=== PATIENT | male | born 1930 | race Caucasian/White ===

== ENCOUNTER 2017-10-20 18:41 | Inpatient (IN) | payer MEDICARE ==
[2017-10-20] MEDS ORDERED: NORMAL SALINE 1,000 ML IV ONE (18:58)
[2017-10-20] MEDS ORDERED: ONDANSETRON HCL/PF 2 MG/ML VIAL IV ONE (18:58)
[2017-10-20] MEDS ORDERED: KETOROLAC TROMETHAMINE 30 MG/ML VIAL IV ONE (18:58)
[2017-10-20] MEDS ORDERED: KETOROLAC TROMETHAMINE 30 MG/ML VIAL ONE (19:02)
[2017-10-20] MEDS ORDERED: ONDANSETRON HCL/PF 2 MG/ML VIAL ONE (19:02)
--- NOTE | 2017-10-20 19:04 | ERNOTE ---
Medical Problem HPI - Narrative Date of Service: 10/20/17 - General Chief Complaint: Nausea/Vomiting Time Seen by Provider: 10/20/17 18:54 Source: patient Exam Limitations: no limitations - Immun/Allergies/Home Medications Immunizations: IMMUNIZATION HX Immunizations Up to Date Yes History of Influenza Vaccine Yes Hx Pneumococcal Vaccination Yes Allergies/Adverse Reactions: Allergies No Known Allergies Allergy (Verified 10/20/17 19:04) Home Medications: HOME MEDICATIONS Insulin Detemir [Levemir] 20 unit SQ BID 10/20/17 [Last Taken Unknown] Levothyroxine Sodium [Levo-T] 50 mcg PO DAILY 10/20/17 [Last Taken Unknown] Lisinopril [Zestril] 10 mg PO HS 10/20/17 [Last Taken Unknown] metFORMIN HCL [Metformin HCl ER] 500 mg PO BID 10/20/17 [Last Taken Unknown] - History of Present History Narrative: Pt. comes in with nausea, vomiting and diarrhea for approximately a day or two. Pt. is poor historian and it has been reported by pt. neighbors that he fell out of his wheel chair. Pt. denies this. Pt. lives in independent living. Timing: getting worse Severity: mild Modifying Factors - (Improves): Present: other - denies Modifying Factors - (Worsens): Present: other - denies Review of Systems - Review of Systems Constitutional: Present: fever, weakness. Absent: chills, fatigue, malaise EYE: Present: no symptoms reported ENT: Present: no symptoms reported Respiratory: Present: no symptoms reported. Absent: shortness of breath, cough , wheezing Cardiology: Present: no symptoms reported. Absent: chest pain, palpitations, edema Gastrointestinal/Abdominal: Present: nausea, vomiting, diarrhea. Absent: abdominal pain Genitourinary: Present: no symptoms reported, decreased urinary output. Absent : frequency Musculoskeletal: Absent: back pain, neck pain, joint pain Skin: Present: no symptoms reported. Absent: rash, change in color, change in hair/nails Neurological: Present: no symptoms reported. Absent: headache, dizziness/light- headedness, numbness, tingling All Other Systems: All systems neg except as marked - Patient's Past Medical History Patient History - Medical: Diabetes Type 2 Insulin Dependent Patient History - Cardiac/Respiratory: COPD, Hypertension Patient History - Cancer: Skin - Social History Living Situations: assisted living Abuse History: No History of abuse Psych History: No pertinent hx Smoking Status: Former smoker Have you smoked in the past 12 months: No Do you dip or chew tobacco: No Alcohol Use: none Drug Use: none - Immunizations Immunizations Up to Date: Yes Hx Pneumococcal Vaccination: Yes History of Influenza Vaccine: Yes Physical Exam - Physical Exam General Appearance: Present: wd/wn, alert, no apparent distress Head Exam: Present: normal inspection, no evidence of injury, no tenderness w palpation Eye Exam: Normal inspection: bilateral, PERRL: bilateral, EOMI: bilateral Ears, Nose, Throat: Present: normal ENT inspection, normal pharynx Neck: Present: normal inspection, nontender, supple, full range of motion, lymphadenopathy (R), lymphadenopathy (L) Respiratory: Present: no respiratory distress, no accessory muscle use, chest nontender, decreased breath sounds. Absent: rales, rhonchi, wheezing Cardiovascular/Chest: Present: no murmur, normal peripheral pulses, tachycardia Gastrointestinal/Abdominal: Present: nontender, soft, abnormal bowel sounds - rare, distended, hepatomegaly Back Exam: Present: normal inspection, normal range of motion, no CVA tenderness , no vertebral tenderness Extremity Exam: Present: normal inspection, non-tender, normal range of motion, no edema Neurological Exam: Present: alert, oriented, normal mood/affect, no motor/ sensory deficits Skin Exam: Present: normal color, warm/dry. Absent: pallor, skin rash ED Progress - Date and Time Seen: Date and Time: 10/20/17 21:18 Discussed with Ki and she agrees to accept pt. for admission.for acute due to pneumonia, sepsis, and hypoxia. - Results and Orders Patient's Lab Results:: I have reviewed the patient's lab results. Results and Orders: Laboratory Results - last 24 hr 10/20/17 10/20/17 10/20/17 18:45 19:15 19:15 WBC 17.1 H RBC 5.18 Hgb 15.0 Hct 42.6 MCV 82.2 MCH 29.0 MCHC 35.2 RDW 12.4 Plt Count 326 MPV 9.7 H Immature Gran % (Auto) 0.70 H Immature Gran # (Auto) 0.12 H Neutrophils % 87.2 H Lymphocytes % 4.9 L Monocytes % 6.1 Eosinophils % 0.5 Basophils % 0.6 Nucleated RBC % 0.0 Neutrophils # 14.9 H Lymphocytes # 0.8 L Monocytes # 1.0 Eosinophils # 0.1 Absolute Basophils 0.1 ESR 25 H Sodium Plasma Sodium Potassium Chloride Carbon Dioxide Anion Gap BUN Creatinine Est GFR (Non-Af Amer) BUN/Creatinine Ratio Random Glucose Mean Blood Glucose Hemoglobin A1c Lactic Acid, Venous Calcium Calcium Adj for Albumin Total Bilirubin AST ALT Alkaline Phosphatase Troponin I C-Reactive Prot, Quant B-Natriuretic Peptide Total Protein Albumin Urine Color Urine Appearance Urine pH Ur Specific [place] Urine Protein Urine Glucose (UA) Urine Ketones Urine Blood Urine Nitrate Urine Bilirubin Prot Sulfosalicylic Acd Urine Urobilinogen Ur Leukocyte Esterase Urine RBC Urine WBC Ur Epithelial Cells Urine Bacteria Urine Culture Comments Serum Ketones Influenza Type A Ag Negative Influenza Type B Ag Negative 10/20/17 10/20/17 10/20/17 19:15 19:15 19:15 WBC RBC Hgb Hct MCV MCH MCHC RDW Plt Count MPV Immature Gran % (Auto) Immature Gran # (Auto) Neutrophils % Lymphocytes % Monocytes % Eosinophils % Basophils % Nucleated RBC % Neutrophils # Lymphocytes # Monocytes # Eosinophils # Absolute Basophils ESR Sodium 138 Plasma Sodium 141 Potassium 4.9 H Chloride 102 Carbon Dioxide 26.7 Anion Gap 14.2 H BUN 20 Creatinine 1.43 H Est GFR (Non-Af Amer) 50 L D BUN/Creatinine Ratio 14.0 Random Glucose 315 H Mean Blood Glucose 234 Hemoglobin A1c 9.6 H Lactic Acid, Venous Calcium 8.6 Calcium Adj for Albumin 8.7 Total Bilirubin 0.5 AST 17 ALT 33 Alkaline Phosphatase 91 Troponin I Less than 0.017 C-Reactive Prot, Quant 1.1 H B-Natriuretic Peptide 79 Total Protein 7.1 Albumin 3.5 Urine Color Urine Appearance Urine pH Ur Specific [place] Urine Protein Urine Glucose (UA) Urine Ketones Urine Blood Urine Nitrate Urine Bilirubin Prot Sulfosalicylic Acd Urine Urobilinogen Ur Leukocyte Esterase Urine RBC Urine WBC Ur Epithelial Cells Urine Bacteria Urine Culture Comments Serum Ketones Negative Influenza Type A Ag Influenza Type B Ag 10/20/17 10/20/17 19:25 19:56 WBC RBC Hgb Hct MCV MCH MCHC RDW Plt Count MPV Immature Gran % (Auto) Immature Gran # (Auto) Neutrophils % Lymphocytes % Monocytes % Eosinophils % Basophils % Nucleated RBC % Neutrophils # Lymphocytes # Monocytes # Eosinophils # Absolute Basophils ESR Sodium Plasma Sodium Potassium Chloride Carbon Dioxide Anion Gap BUN Creatinine Est GFR (Non-Af Amer) BUN/Creatinine Ratio Random Glucose Mean Blood Glucose Hemoglobin A1c Lactic Acid, Venous 2.4 H* Calcium Calcium Adj for Albumin Total Bilirubin AST ALT Alkaline Phosphatase Troponin I C-Reactive Prot, Quant B-Natriuretic Peptide Total Protein Albumin Urine Color Yellow Urine Appearance Slightly cloudy Urine pH 6.0 Ur Specific [place] 1.020 Urine Protein 100 H Urine Glucose (UA) >=1000 H Urine Ketones 15 Urine Blood Negative Urine Nitrate Negative Urine Bilirubin Negative Prot Sulfosalicylic Acd 1+ Urine Urobilinogen Normal Ur Leukocyte Esterase Negative Urine RBC None seen Urine WBC None seen Ur Epithelial Cells None seen Urine Bacteria Trace Urine Culture Comments No culture indicated Serum Ketones Influenza Type A Ag Influenza Type B Ag - Vital Signs Patient's Vital Signs:: I have reviewed the patient's vital signs. Vital Signs: Vital Signs 10/20/17 18:43 Temperature 38.3 C H Pulse Rate 132 H Respiratory 32 H Rate Blood Pressure 123/69 O2 Sat by Pulse 90 Oximetry - EKG EKG: nonspecific ST T wave changes, other - Sinus tach EKG read: Reviewed by me EKG Comments: no acute - X-Ray X-Ray #1 X-Ray: chest Interpretation: Interp. by me X-ray Comments: B LL pneumopnial and RML pneumonia and atelactasis dependent X-Ray #2 X-Ray: abdomen Interpretation: Interp. by me X-ray Comments: Non specific bowel gas pattern no obvous free air or obstruction. - CT/Ultrasound CT/Ultrasound Narrative: CT head negative for any acute abnormality - Progress/Reassessment Chief Complaint: Nausea/Vomiting Progress:: Unchanged Departure Clinical Impression: Hypoxic, Dehydration, Hyperglycemia Pneumonia Qualifiers: Pneumonia type: due to unspecified organism Laterality: bilateral Lung location : lower lobe of lung Qualified Code(s): J18.9 - Pneumonia, unspecified organism Sepsis Qualifiers: Sepsis type: sepsis due to unspecified organism Qualified Code(s): A41.9 - Sepsis, unspecified organism - Departure Disposition: Still a patient Condition: Serious
[2017-10-20 19:30] LABS: Hematocrit 42.6 % (42.0-52.0); Mean Cell Volume 82.2 fl (78-100); Mean Corpuscular Hgb Conc 35.2 g/dl (32-36); Mean Platelet Volume 9.7 fl (6.0-9.5); Neutrophil # 14.9 K/mm3 (1.3-6.0); Neutrophil % 87.2 % (42-75.0); Platelet Count 326 K/mm3 (150-450); Red Blood Count 5.18 M/mm3 (4.7-6.0); Red Cell Distribution Width 12.4 % (11.5-14.0); White Blood Count 17.1 K/mm3 (4.0-10.5)
[2017-10-20 20:02] LABS: ALT 33 U/L (19-67); AST 17 U/L (0-48); Albumin * 3.5 gm/dl (3.4-5.0); Alkaline Phosphatase * 91 U/L (50-170); Anion Gap 14.2 mmol/L (6.8-13.8); BNP * 79 pg/mL (5-650); Bilirubin, Total 0.5 mg/dL (0.0-1.1); Blood Urea Nitrogen 20 mg/dL (6-23); CRP 1.1 mg/dL (0.0-0.9); Ca. Corrected For Albumin 8.7 mg/dL (8.4-10.2); Calcium * 8.6 mg/dL (7.9-10.9); Carbon Dioxide 26.7 mmol/L (24-32.6); Chloride 102 mmol/L (97-106); Glucose * 315 mg/dL (70-110); Potassium 4.9 mmol/L (3.4-4.6); Sodium 138 mmol/L (132-142); Total Protein 7.1 gm/dL (6.2-8.2)
[2017-10-20 20:03] LABS: Troponin I Less than 0.017 ng/ml (0.00-0.10)
[2017-10-20 20:04] LABS: Urine Bilirubin Negative (NEGATIVE); Urine Blood Negative /ul (NEGATIVE); Urine Ketone 15 mg/dL (NEGATIVE); Urine Nitrite Negative (NEGATIVE); Urine Protein 100 mg/dL (NEGATIVE); Urine Urobilinogen Normal (NORMAL)
[2017-10-20 20:17] LABS: Urine Appearance Slightly Cloudy; Urine Bacteria TRACE; Urine Color Yellow; Urine RBC None Seen /hpf (0-5); Urine WBC None Seen /hpf (0-5)
[2017-10-20 20:17] LABS: Hemoglobin A1C 9.6 % (4.00-6.0)
[2017-10-20] MEDS: NORMAL SALINE 1,000 ML IV PRN ×2 (20:25→21:31)
[2017-10-20] MEDS ORDERED: AZITHROMYCIN 500 MG in DEXTROSE 5 % IN WATER 250 ML IV ONE ×2 (20:45)
[2017-10-20] MEDS ORDERED: ACETAMINOPHEN 500 MG TABLET PO ONE (20:51)
--- NOTE | 2017-10-20 22:09 | HP ---
Chief Complaint - Chief Complaint Date of Service: 10/20/17 Time of Service: 22:09 Chief Complaint: nausea, vomiting and diarrhea History of Present Illness: 87 years old white male adm to the hospital with reports of nausea, vomiting , diarrhea, weakness and unable to walk.pt stated his s/s began yesterday, but he began having a cough accompanied with shortness of breath today. He decided its time to seek help, so he called EMS that brought him to the ER. He denies fever , chills, chest pain and haven't had diarrhea or vomiting since this morning. PMH significant for diabetes, hypothyroidism,skin cancer,hypertension and hyperlipidemia. In ER Hypoxic 87% on RA, WBC 17.1, Temp 39 Lactic acid 2.4, Per ERP CXR:B LL pneumopnial and RML pneumonia and atelactasis dependent . CT head negative . In ER he was started on Rocephin and Azithromycin.Plan of care discussed with pt he verbalized understanding and agrees. - Patient's Past Medical History Patient History - Medical: Diabetes Type 2 Insulin Dependent, Hypothyroidism, Other - inflammation of eyelids Patient History - Cardiac/Respiratory: COPD, Deep Vein Thrombosis - 5yrs ago, Hypertension, Hyperlipidemia Patient History - Cancer: Melanoma, Skin Patient History - Surgical Procedures: Cholecystectomy, Other - skin graft, nose resection - Family History Mother Family History - Medical: Father Family History - Medical: Family History - Cancer: Colon - Social History Living Situations: other - senior housing Abuse History: No History of abuse Psych History: No pertinent hx Does anyone smoke in the home?: No Smoking Status: Former smoker - quit 35yrs ago Have you smoked in the past 12 months: No Do you dip or chew tobacco: No Alcohol Use: none Drug Use: none - Immunizations Immunizations Up to Date: Yes Hx Pneumococcal Vaccination: Yes History of Influenza Vaccine: Yes Review Of Systems (GEN) - Review of Systems Generalized/Overall Review: Present: Weakness EENTM: Present: Tearing Respiratory: Present: Cough, Shortness of Breath Cardiac: Present: No Symptoms Reported Abdominal: Present: No Symptoms Reported Genitourinary: Present: Frequency Musculoskeletal: Present: No Symptoms Reported Neurological: Present: Weakness Skin: Present: Dryness Endocrine: Present: No Symptoms Reported Immunizations: IMMUNIZATION HX Immunizations Up to Date Yes History of Influenza Vaccine Yes Hx Pneumococcal Vaccination Yes Allergies/Adverse Reactions: Allergies Allergy/AdvReac Type Severity Reaction Status Date / Time No Known Allergies Allergy Verified 10/20/17 19:04 Home Medications: HOME MEDICATIONS Cholecalciferol (Vitamin D3) [Vitamin D3] 1,000 unit PO DAILY 10/20/17 [Last Taken Unknown] Cyanocobalamin (Vitamin B-12) [Vitamin B12] 2,500 mcg PO DAILY 10/20/17 [Last Taken Unknown] Insulin Detemir [Levemir] 20 unit SQ BID 10/20/17 [Last Taken Unknown] Levothyroxine Sodium [Levo-T] 50 mcg PO DAILY 10/20/17 [Last Taken Unknown] Lisinopril [Zestril] 10 mg PO HS 10/20/17 [Last Taken Unknown] metFORMIN HCL [Metformin HCl ER] 500 mg PO BID 10/20/17 [Last Taken Unknown] Exam - Exam Vital Signs: Vital Signs - Last Taken Temp 38.6 C H 10/20/17 21:17 Pulse 119 H 10/20/17 21:32 Resp 20 10/20/17 21:32 BP 126/58 10/20/17 21:32 Pulse Ox 91 10/20/17 21:32 Constitutional: Present: Alert, Oriented x3, Cooperative, No distress, Obese ENT Exam: Present: hard of hearing Eye Exam: bilateral eye: eyelid inflammation - Ectropion Neck: Present: full range of motion Back Exam: Present: normal inspection Breasts: Present: Exam deferred Respiratory: Present: chest non-tender, no respiratory distress, decreased breath sounds, rhonchi Cardiovascular/Chest: Present: normal peripheral pulses, regular rate, rhythm, no chest tenderness, no edema Peripheral Pulses: dorsalis-pedis (R): 3+, dorsalis-pedis (L): 3+ Abdomen: Present: Normal bowel sounds, soft, nontender, nondistended /Rectal: Present: Exam deferred Extremity: Present: normal range of motion, non-tender, normal inspection, no pedal edema Skin Exam: Present: warm/dry Neurologic: Present: alert, oriented x 3 Appearance: Present: appropriate appearance, appropriate insight, disheveled Eye contact: Present: cooperative, good eye contact Thoughts: Present: normal thought pattern, no apparent hallucination Diagnostic Studies: Laboratory Results WBC 17.1 K/mm3 (4.0-10.5) H 10/20/17 19:15 RBC 5.18 M/mm3 (4.7-6.0) 10/20/17 19:15 Hgb 15.0 gm/dL (13.5-18.0) 10/20/17 19:15 Hct 42.6 % (42.0-52.0) 10/20/17 19:15 MCV 82.2 fl (78-100) 10/20/17 19:15 MCH 29.0 pg (27-31) 10/20/17 19:15 MCHC 35.2 g/dl (32-36) 10/20/17 19:15 RDW 12.4 % (11.5-14.0) 10/20/17 19:15 Plt Count 326 K/mm3 (150-450) 10/20/17 19:15 MPV 9.7 fl (6.0-9.5) H 10/20/17 19:15 Immature Gran % (Auto) 0.70 % (0.001-0.429) H 10/20/17 19:15 Immature Gran # (Auto) 0.12 K/mm3 (0.000-0.0310) H 10/20/17 19:15 Neutrophils % 87.2 % (42-75.0) H 10/20/17 19:15 Lymphocytes % 4.9 % (20-51) L 10/20/17 19:15 Monocytes % 6.1 % (0.0-9) 10/20/17 19:15 Eosinophils % 0.5 % (0.0-3.0) 10/20/17 19:15 Basophils % 0.6 % (0.0-1.0) 10/20/17 19:15 Nucleated RBC % 0.0 k/mm3 (0-1) 10/20/17 19:15 Neutrophils # 14.9 K/mm3 (1.3-6.0) H 10/20/17 19:15 Lymphocytes # 0.8 k/mm3 (1.5-3.5) L 10/20/17 19:15 Monocytes # 1.0 k/mm3 (0.0-1.0) 10/20/17 19:15 Eosinophils # 0.1 k/mm3 (0.0-0.7) 10/20/17 19:15 Absolute Basophils 0.1 k/mm3 (0.0-0.1) 10/20/17 19:15 ESR 25 mm/hr (0-10) H 10/20/17 19:15 Sodium 138 mmol/L (132-142) 10/20/17 19:15 Plasma Sodium 141 mmol/L (130-142) 10/20/17 19:15 Potassium 4.9 mmol/L (3.4-4.6) H 10/20/17 19:15 Chloride 102 mmol/L (97-106) 10/20/17 19:15 Carbon Dioxide 26.7 mmol/L (24-32.6) 10/20/17 19:15 Anion Gap 14.2 mmol/L (6.8-13.8) H 10/20/17 19:15 BUN 20 mg/dL (6-23) 10/20/17 19:15 Creatinine 1.43 mg/dL (0.4-1.4) H 10/20/17 19:15 Est GFR (Non-Af Amer) 50 mL/min (60-130) L D 10/20/17 19:15 BUN/Creatinine Ratio 14.0 (9.0-21.6) 10/20/17 19:15 Random Glucose 315 mg/dL (70-110) H 10/20/17 19:15 Mean Blood Glucose 234 mg/dL 10/20/17 19:15 Hemoglobin A1c 9.6 % (4.00-6.0) H 10/20/17 19:15 Lactic Acid, Venous 2.4 mmol/L (0.4-1.9) H* 10/20/17 19:25 Calcium 8.6 mg/dL (7.9-10.9) 10/20/17 19:15 Calcium Adj for Albumin 8.7 mg/dL (8.4-10.2) 10/20/17 19:15 Total Bilirubin 0.5 mg/dL (0.0-1.1) 10/20/17 19:15 AST 17 U/L (0-48) 10/20/17 19:15 ALT 33 U/L (19-67) 10/20/17 19:15 Alkaline Phosphatase 91 U/L (50-170) 10/20/17 19:15 Troponin I Less than 0.017 ng/ml (0.00-0.10) 10/20/17 19:15 C-Reactive Prot, Quant 1.1 mg/dL (0.0-0.9) H 10/20/17 19:15 B-Natriuretic Peptide 79 pg/mL (5-650) 10/20/17 19:15 Total Protein 7.1 gm/dL (6.2-8.2) 10/20/17 19:15 Albumin 3.5 gm/dl (3.4-5.0) 10/20/17 19:15 Procalcitonin 0.76 ng/mL (0.05-0.50) H 10/20/17 19:45 Urine Color Yellow 10/20/17 19:56 Urine Appearance Slightly cloudy 10/20/17 19:56 Urine pH 6.0 pH (5.0-7.0) 10/20/17 19:56 Ur Specific [place] 1.020 SP.GR. (1.005-1.030) 10/20/17 19:56 Urine Protein 100 mg/dL (NEGATIVE) H 10/20/17 19:56 Urine Glucose (UA) >=1000 mg/dL (NEGATIVE) H 10/20/17 19:56 Urine Ketones 15 mg/dL (NEGATIVE) 10/20/17 19:56 Urine Blood Negative /ul (NEGATIVE) 10/20/17 19:56 Urine Nitrate Negative (NEGATIVE) 10/20/17 19:56 Urine Bilirubin Negative mg/dl (NEGATIVE) 10/20/17 19:56 Prot Sulfosalicylic Acd 1+ mg/dL (0) 10/20/17 19:56 Urine Urobilinogen Normal EU/dl (NORMAL) 10/20/17 19:56 Ur Leukocyte Esterase Negative /ul (NEGATIVE) 10/20/17 19:56 Urine RBC None seen /hpf (0-5) 10/20/17 19:56 Urine WBC None seen /hpf (0-5) 10/20/17 19:56 Ur Epithelial Cells None seen /hpf (0-5) 10/20/17 19:56 Urine Bacteria Trace (NONE) 10/20/17 19:56 Urine Culture Comments No culture indicated 10/20/17 19:56 Serum Ketones Negative (NEGATIVE) 10/20/17 19:15 Influenza Type A Ag Negative (NEGATIVE) 10/20/17 18:45 Influenza Type B Ag Negative (NEGATIVE) 10/20/17 18:45 Per ERP CXR:B LL pneumopnial and RML pneumonia and atelactasis dependent . CT head negative . Assessment/Plan - Narrative Narrative: Pneumonia Continue with Rocephin and Azithromycin Blood culture, pneumoiae and legionella pending On adm WBC 17.1, ESR 25, CRP 1, procal 0.76 Per ERP CXR:B LL pneumonia and RML pneumonia and atelactasis dependent. On adm hypoxic with spo2 87% on RA, switched to 1L oxygen with sats 93-95% He had 3L IVF in ER and Continue with IVF NS 125ml/hr Monitor CMP in am Sepsis vs Sirs On adm Lactic acid 2.4--->2.2 On adm WBC 17.7, No bands, Temp 38.3, HR 132 and resp 32 Pt with Amauri lower lobe pneumonia He had 3L IVF bolus in ER and will Continue with IVF Continue with schedule IV antbx Diabetic On adm BG 315 A1C 9.6 Consistent carb diet Accu-check AC+HS Code status: Full VTE ppx:SCD and heparin Sc GI ppx:Pepcid Time 40 minutes and case discussed with Samanta - Assessment/Plan (1) Pneumonia Problem: Acute Qualifiers: Pneumonia type: due to unspecified organism Laterality: bilateral Lung location: lower lobe of lung Qualified Code(s): J18.9 - Pneumonia, unspecified organism (2) Diabetes Problem: Chronic Qualifiers: Diabetes mellitus type: type 2 (3) Hypertension Problem: Chronic Qualifiers: Hypertension type: essential hypertension Qualified Code(s): I10 - Essential (primary) hypertension (4) Hypothyroidism Problem: Chronic (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
[2017-10-20] MEDS: INSULIN DETEMIR 100 UNITS/ML VIAL SC SCH (23:54)
[2017-10-21] MEDS: NORMAL SALINE 1,000 ML IV PRN ×3 (02:48→18:50)
[2017-10-21 05:44] LABS: Hematocrit 41.3 % (42.0-52.0); Hemoglobin 14.1 gm/dL (13.5-18.0); Mean Cell Volume 83.9 fl (78-100); Mean Corpuscular Hemoglobin 28.7 pg (27-31); Mean Corpuscular Hgb Conc 34.1 g/dl (32-36); Mean Platelet Volume 9.9 fl (6.0-9.5); Platelet Count 281 K/mm3 (150-450); Red Blood Count 4.92 M/mm3 (4.7-6.0); Red Cell Distribution Width 12.6 % (11.5-14.0); White Blood Count 20.7 K/mm3 (4.0-10.5)
[2017-10-21 05:54] LABS: Total Cells Counted 100
[2017-10-21 06:06] LABS: Albumin * 2.9 gm/dl (3.4-5.0); Anion Gap 11.7 mmol/L (6.8-13.8); BUN/Creatinine Ratio 14.4 (9.0-21.6); Bilirubin, Total 0.6 mg/dL (0.0-1.1); Ca. Corrected For Albumin 8.6 mg/dL (8.4-10.2); Potassium 4.7 mmol/L (3.4-4.6); Total Protein 6.3 gm/dL (6.2-8.2)
[2017-10-21 06:21] LABS: Band 9 % (0-2.0); Lymphocyte 2 % (20-51); Monocyte 3 % (0-9); Neutrophil 86 % (42-75); Neutrophil # 17.8 K/mm3 (1.3-6.0); Platelet Estimate Normal (NORMAL)
[2017-10-21 06:22] LABS: RBC Morphology Normal (NORMAL)
[2017-10-21] MEDS: FAMOTIDINE 20 MG TABLET PO SCH ×2 (07:19→08:18)
[2017-10-21] MEDS: LEVOTHYROXINE SODIUM 50 MCG TABLET PO SCH (07:19)
[2017-10-21] MEDS: INSULIN DETEMIR 100 UNITS/ML VIAL SC SCH ×2 (08:16→21:12)
[2017-10-21] MEDS: CYANOCOBALAMIN 1,000 MCG TABLET PO SCH (08:18)
[2017-10-21] MEDS: CHOLECALCIFEROL 1,000 UNIT CAPSULE PO SCH (08:18)
[2017-10-21] MEDS: INSULIN LISPRO 100 UNITS/ML VIAL SC SCH ×2 (17:18)
--- NOTE | 2017-10-21 20:25 | PN ---
Subjective - Date and Time Seen Date: 10/21/17 Time: 20:25 Subjective Narrative: patient seen today sitting up in chair no fever, cough, chills, palpitation or chest pain. pt stated he his feeling well. he report right ankle pain and stated he had fracture ankle 6 years ago and was told it will not heal. Ankle is warm and tender to touch. Objective Objective Narrative: There is a small sore on dorsal aspect of right foot. Right ankle + 4 edema with erythema, it warm and painful to touch. - Review of Systems Generalized/Overall Review: Reports: No Symptoms Reported EENTM: Reports: Tearing Respiratory: Reports: No Symptoms Reported Cardiac: Reports: No Symptoms Reported Abdominal: Reports: No Symptoms Reported Genitourinary Symptoms: Reports: No Symptoms Reported Musculoskeletal Complaints: Reports: No Symptoms Reported Neurological: Reports: No Symptoms Reported Skin: Reports: No Symptoms Reported Endocrine: Reports: No Symptoms Reported - Vitals Vitals: Last Vital Signs Temp 36.7 C 10/21/17 20:07 Pulse 87 10/21/17 20:07 Resp 20 10/21/17 20:07 BP 140/68 10/21/17 20:07 Pulse Ox 99 10/21/17 20:07 - Abnormal Lab Findings Abnormal Lab Findings: Abnormal Lab Results 10/20/17 10/21/17 10/21/17 Range/Units 22:05 05:00 05:00 WBC 20.7 H D (4.0-10.5) K/mm3 Hct 41.3 L (42.0-52.0) % MPV 9.9 H (6.0-9.5) fl Neutrophils % (Manual) 86 H (42-75) % Band Neuts % (Manual) 9 H (0-2.0) % Lymphocytes % (Manual) 2 L (20-51) % Neutrophils # (Manual) 17.8 H (1.3-6.0) K/mm3 Lymphocytes # (Manual) 0.4 L (1.5-3.5) k/mm3 Potassium 4.7 H (3.4-4.6) mmol/L Creatinine 1.60 H (0.4-1.4) mg/dL Est GFR (Non-Af Amer) 44 L (60-130) mL/min Random Glucose 280 H (70-110) mg/dL Lactic Acid, Venous 2.2 H* (0.4-1.9) mmol/L Albumin 2.9 L (3.4-5.0) gm/dl - Exam Constitutional: Present: Alert, Cooperative, No distress, Elderly, Morbidly obese ENT Exam: Present: hard of hearing, other - tearing and inflammation of both eye lids Neck: Present: full range of motion Breasts: Present: Exam deferred Respiratory: Present: chest non-tender, lungs clear, normal breath sounds, no respiratory distress Cardiovascular/Chest: Present: normal peripheral pulses, regular rate, rhythm, no chest tenderness, edema Abdomen: Present: Normal bowel sounds, soft, nontender, nondistended, no rebound tenderness /Rectal: Present: Exam deferred Extremity: Present: normal inspection, no calf tenderness, swelling - right leg , other - riht ankle painful to touch Skin Exam: Present: warm/dry, other - right foot with small sore on the dorsal aspect, erythema around the ankle Neurologic: Present: alert, normal mood/affect Appearance: Present: appropriate appearance Eye contact: Present: good eye contact Thoughts: Present: normal thought pattern Assessment/Plan Plan Narrative: Pneumonia R/O---> Bacteremia Potential sore of infection: Right ankle with erythema, +4 edema, painful to touch and small sore on dorsal aspect of foot. Blood culture preliminary numerous gram (+0) cocci Pneumoiae and legionella pending Continue with Rocephin and Azithromycin On adm WBC 17.1----> 20.7 pt remains afebrile ESR 25, CRP 1, procal 0.76 On adm hypoxic with spo2 87% on RA, switched to 1L oxygen with sats 93-95%. pt had since been Dc off oxygen and on RA 95% Continue with IVF NS 125ml/hr Monitor CMP in am CXR:Extensive chronic lung disease w/o acute focal cardiopulmonary process. X-ray right foot pending ? Sepsis vs Sirs On adm Lactic acid 2.4--->2.2---> On adm WBC 17.7--->20.7, No bands, pt been afebrile since 10/20/17 22:53 CXR:Extensive chronic lung disease w/o acute focal cardiopulmonary process. X-ray ABD: No acute plain film pathology Continue with schedule IV antbx and IVF Potential sore of infection: Right ankle with erythema, +4 edema, painful to touch and small sore on dorsal aspect of foot. Diabetic BG 180 A1C 9.6 Consistent carb diet Accu-check AC+HS Code status: Full VTE ppx:SCD and heparin Sc GI ppx:Pepcid Time 20 minutes and case discussed with Thondapu - Problems/Diagnosis (1) Pneumonia Problem: Ruled-out Qualifiers: Pneumonia type: due to unspecified organism Laterality: bilateral Lung location: lower lobe of lung Qualified Code(s): J18.9 - Pneumonia, unspecified organism (2) Diabetes Problem: Chronic Qualifiers: Diabetes mellitus type: type 2 (3) Hypertension Problem: Chronic Qualifiers: Hypertension type: essential hypertension Qualified Code(s): I10 - Essential (primary) hypertension (4) Hypothyroidism Problem: Chronic (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
[2017-10-21] MEDS: LISINOPRIL 10 MG TABLET PO SCH (21:12)
[2017-10-21] MEDS: cefTRIAXone SODIUM 1,000 MG in DEXTROSE 5 % IN WATER 50 ML IV SCH ×2 (21:19)
[2017-10-21] MEDS: AZITHROMYCIN 500 MG in DEXTROSE 5 % IN WATER 250 ML IV SCH ×2 (21:53)
[2017-10-22] MEDS: NORMAL SALINE 1,000 ML IV PRN ×2 (04:13→16:45)
[2017-10-22 05:08] LABS: Hemoglobin 14.1 gm/dL (13.5-18.0); Mean Cell Volume 83.5 fl (78-100); Mean Corpuscular Hemoglobin 28.7 pg (27-31); Mean Corpuscular Hgb Conc 34.4 g/dl (32-36); Mean Platelet Volume 9.6 fl (6.0-9.5); Neutrophil # 12.8 K/mm3 (1.3-6.0); Neutrophil % 82.4 % (42-75.0); Platelet Count 264 K/mm3 (150-450); Red Blood Count 4.91 M/mm3 (4.7-6.0); Red Cell Distribution Width 12.6 % (11.5-14.0); White Blood Count 15.5 K/mm3 (4.0-10.5)
[2017-10-22 05:34] LABS: Albumin * 2.6 gm/dl (3.4-5.0); Anion Gap 11.6 mmol/L (6.8-13.8); Bilirubin, Total 0.4 mg/dL (0.0-1.1); Ca. Corrected For Albumin 8.9 mg/dL (8.4-10.2); Calcium * 8.1 mg/dL (7.9-10.9); Carbon Dioxide 25.3 mmol/L (24-32.6); Potassium 3.9 mmol/L (3.4-4.6); Total Protein 6.3 gm/dL (6.2-8.2)
[2017-10-22 05:40] LABS: BUN/Creatinine Ratio 12.6 (9.0-21.6)
--- NOTE | 2017-10-22 07:01 | PN ---
Subjective - Date and Time Seen Date: 10/22/17 Time: 06:45 Subjective Narrative: Patient seen today alert and sitting up in chair. pt stated his right ankle still hurt and very tender to touch. He denies fever, chills, calf pain, palpitation, cough or chest pain. Objective - Review of Systems Generalized/Overall Review: Reports: No Symptoms Reported EENTM: Reports: No Symptoms Reported Respiratory: Reports: No Symptoms Reported Cardiac: Reports: No Symptoms Reported Abdominal: Reports: No Symptoms Reported Genitourinary Symptoms: Reports: No Symptoms Reported Musculoskeletal Complaints: Reports: Joint Pain - right ankle, Joint Swelling - right ankle Neurological: Reports: No Symptoms Reported Skin: Reports: Dryness Endocrine: Reports: No Symptoms Reported - Vitals Vitals: Last Vital Signs Temp 37.2 C 10/22/17 04:00 Pulse 84 10/22/17 04:00 Resp 20 10/22/17 04:00 BP 139/89 10/22/17 04:00 Pulse Ox 91 10/22/17 04:00 - Abnormal Lab Findings Abnormal Lab Findings: Abnormal Lab Results 10/22/17 10/22/17 Range/Units 05:04 05:04 WBC 15.5 H D (4.0-10.5) K/mm3 Hct 41.0 L (42.0-52.0) % MPV 9.6 H (6.0-9.5) fl Immature Gran % (Auto) 0.70 H (0.001-0.429) % Immature Gran # (Auto) 0.11 H (0.000-0.0310) K/mm3 Neutrophils % 82.4 H (42-75.0) % Lymphocytes % 10.0 L (20-51) % Neutrophils # 12.8 H (1.3-6.0) K/mm3 Random Glucose 69 L D (70-110) mg/dL Albumin 2.6 L (3.4-5.0) gm/dl - Exam Constitutional: Present: Alert, Cooperative, No distress, Elderly, Morbidly obese ENT Exam: Present: hard of hearing Neck: Present: full range of motion Respiratory: Present: chest non-tender, no respiratory distress, decreased breath sounds Cardiovascular/Chest: Present: normal peripheral pulses, regular rate, rhythm, no chest tenderness, no gallop, edema Abdomen: Present: Normal bowel sounds, soft, nontender, nondistended /Rectal: Present: Exam deferred Extremity: Present: no calf tenderness, normal capillary refill, lower extremity edema - right foot, other - right ankle and stacker tender to touch. Absent: normal range of motion Skin Exam: Present: other - erythema around right ankle and dorsal aspect of right foot with small sore Neurologic: Present: normal mood/affect, oriented x 3 Appearance: Present: appropriate appearance Eye contact: Present: cooperative, good eye contact Thoughts: Present: normal thought pattern Assessment/Plan Plan Narrative: ?Bacteremia- possible contaminant Potential sore of infection: Right ankle with erythema, +4 edema, painful to touch and small sore on dorsal aspect of foot. Blood culture final result: strep pyogenes group A, possible contaminant Continue with Rocephin and Azithromycin. On adm WBC 17.1----> 20.7 ---->15.0 trending down and pt remains afebrile Pneumoiae and legionella pending ESR 25, CRP 1, procal 0.76 Continue with IVF NS 125ml/hr CXR:Extensive chronic lung disease w/o acute focal cardiopulmonary process. X-ray right foot pending Sepsis vs Sirs On adm Lactic acid 2.4--->2.2---> On adm WBC 17.7--->20.7---15.0 No bands, pt been afebrile since 10/20/17 22:53 CXR:Extensive chronic lung disease w/o acute focal cardiopulmonary process. X-ray ABD: No acute plain film pathology Continue with schedule IV antbx and IVF Potential sore of infection: Right ankle with erythema, +4 edema, painful to touch and small sore on dorsal aspect of foot. Right ankle edema-concern for possible gout arthritis CRP and ESR pending Uric acid pending X-ray ankle pending Hypoxic -resolved On adm hypoxic with spo2 87% on RA, Pt switched to 1L oxygen with sats 93-95%. pt had since been D/C off oxygen and on RA 95% Diabetic - stable BG 111 A1C 9.6 Consistent carb diet Accu-check AC+HS Code status: Full VTE ppx:SCD and heparin Sc GI ppx:Pepcid Time 20 minutes and case discussed with Thondapu - Problems/Diagnosis (1) Pneumonia Problem: Ruled-out Qualifiers: Pneumonia type: due to unspecified organism Laterality: bilateral Lung location: lower lobe of lung Qualified Code(s): J18.9 - Pneumonia, unspecified organism (2) Diabetes Problem: Chronic Qualifiers: Diabetes mellitus type: type 2 (3) Hypertension Problem: Chronic Qualifiers: Hypertension type: essential hypertension Qualified Code(s): I10 - Essential (primary) hypertension (4) Hypothyroidism Problem: Chronic (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
[2017-10-22] MEDS: INSULIN LISPRO 100 UNITS/ML VIAL SC SCH ×6 (07:06→17:25)
[2017-10-22] MEDS: LEVOTHYROXINE SODIUM 50 MCG TABLET PO SCH (07:07)
[2017-10-22] MEDS: FAMOTIDINE 20 MG TABLET PO SCH (09:22)
[2017-10-22] MEDS: CYANOCOBALAMIN 1,000 MCG TABLET PO SCH (09:22)
[2017-10-22] MEDS: INSULIN DETEMIR 100 UNITS/ML VIAL SC SCH ×2 (09:22→21:08)
[2017-10-22] MEDS: CHOLECALCIFEROL 1,000 UNIT CAPSULE PO SCH (09:22)
[2017-10-22 21:06] LABS: Uric Acid 3.9 mg/dL (2.6-7.2)
[2017-10-22] MEDS: LISINOPRIL 10 MG TABLET PO SCH (21:10)
[2017-10-22] MEDS: cefTRIAXone SODIUM 1,000 MG in DEXTROSE 5 % IN WATER 50 ML IV SCH ×2 (21:11)
[2017-10-22 21:46] LABS: CRP 18.5 mg/dL (0.0-0.9)
[2017-10-22] MEDS: AZITHROMYCIN 500 MG in DEXTROSE 5 % IN WATER 250 ML IV SCH ×2 (21:57)
[2017-10-23] MEDS: NORMAL SALINE 1,000 ML IV PRN (02:24)
[2017-10-23] MEDS: INSULIN LISPRO 100 UNITS/ML VIAL SC SCH ×6 (07:10→17:09)
[2017-10-23] MEDS: LEVOTHYROXINE SODIUM 50 MCG TABLET PO SCH (07:12)
--- NOTE | 2017-10-23 07:22 | PN ---
Subjective - Date and Time Seen Date: 10/23/17 Time: 07:00 Subjective Narrative: Patient seen today with reports of right ankle pain still very much painful. He anticipate been discharge to possible rehab with a walker. Objective - Review of Systems Generalized/Overall Review: Reports: No Symptoms Reported EENTM: Reports: No Symptoms Reported Respiratory: Reports: No Symptoms Reported Cardiac: Reports: No Symptoms Reported Abdominal: Reports: No Symptoms Reported Genitourinary Symptoms: Reports: No Symptoms Reported Musculoskeletal Complaints: Reports: Joint Pain Neurological: Reports: No Symptoms Reported Skin: Reports: No Symptoms Reported Endocrine: Reports: No Symptoms Reported - Vitals Vitals: Last Vital Signs Temp 36.9 C 10/23/17 04:00 Pulse 96 10/23/17 04:00 Resp 20 10/23/17 04:00 BP 162/86 10/23/17 04:00 Pulse Ox 91 10/23/17 04:00 - Abnormal Lab Findings Abnormal Lab Findings: Abnormal Lab Results 10/22/17 10/22/17 Range/Units 20:27 20:27 ESR 69 H (0-10) mm/hr C-Reactive Prot, Quant 18.5 H (0.0-0.9) mg/dL - Exam Constitutional: Present: Alert, Oriented x3, Cooperative, No distress, Elderly, Obese ENT Exam: Present: hard of hearing, other - inflammation eye lids Neck: Present: full range of motion Respiratory: Present: chest non-tender, lungs clear, normal breath sounds, no respiratory distress Cardiovascular/Chest: Present: normal peripheral pulses, regular rate, rhythm, no chest tenderness, no edema Abdomen: Present: Normal bowel sounds, soft, nontender, nondistended, no rebound tenderness Extremity: Present: normal inspection, no calf tenderness, normal capillary refill, lower extremity edema - right ankle swelling,warm and painful to touch Skin Exam: Present: warm/dry Neurologic: Present: normal mood/affect, oriented x 3 Appearance: Present: appropriate appearance, appropriate insight Eye contact: Present: cooperative, good eye contact Thoughts: Present: normal thought pattern, no apparent hallucination Assessment/Plan Plan Narrative: Right ankle edema-concern for possible gout arthritis Uric acid negative X-ray ankle -Arthritic changes, soft tissue swelling. No fracture or dislocation ESR 25--->69, CRP 1--->18.5, procal 0.76 Continue with IVF NS 125ml/hr X-ray right foot- No acute process Diabetic - stable BG 111 A1C 9.6 Consistent carb diet Accu-check AC+HS ?Bacteremia- possible contaminant Potential sore of infection: Right ankle with erythema, +4 edema, painful to touch and small sore on dorsal aspect of foot. Blood culture final result: strep pyogenes group A, possible contaminant Continue with Rocephin and Azithromycin. On adm WBC 17.1----> 20.7 ---->15.0 trending down and pt remains afebrile Pneumoiae and legionella negative Sepsis vs Sirs- resolved - resolving On adm Lactic acid 2.4--->2.2---> On adm WBC 17.7--->20.7---15.0 No bands, pt been afebrile since 10/20/17 22:53 CXR:Extensive chronic lung disease w/o acute focal cardiopulmonary process. X-ray ABD: No acute plain film pathology Continue with schedule IV antbx and IVF Potential sore of infection: Right ankle with erythema, +4 edema, painful to touch and small sore on dorsal aspect of foot. Hypoxic -resolved On adm hypoxic with spo2 87% on RA, Pt switched to 1L oxygen with sats 93-95%. pt had since been D/C off oxygen and on RA 95% Code status: Full VTE ppx:SCD and heparin Sc GI ppx:Pepcid Time 20 minutes and case discussed with Thondapu - Problems/Diagnosis (1) Pneumonia Problem: Ruled-out Qualifiers: Pneumonia type: due to unspecified organism Laterality: bilateral Lung location: lower lobe of lung Qualified Code(s): J18.9 - Pneumonia, unspecified organism (2) Diabetes Problem: Chronic Qualifiers: Diabetes mellitus type: type 2 (3) Hypertension Problem: Chronic Qualifiers: Hypertension type: essential hypertension Qualified Code(s): I10 - Essential (primary) hypertension (4) Hypothyroidism Problem: Chronic (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
[2017-10-23] MEDS: INSULIN DETEMIR 100 UNITS/ML VIAL SC SCH ×2 (09:18→21:55)
[2017-10-23] MEDS: CHOLECALCIFEROL 1,000 UNIT CAPSULE PO SCH (09:19)
[2017-10-23] MEDS: CYANOCOBALAMIN 1,000 MCG TABLET PO SCH (09:19)
[2017-10-23] MEDS: FAMOTIDINE 20 MG TABLET PO SCH (09:19)
[2017-10-23 10:34] LABS: Hematocrit 40.3 % (42.0-52.0); Hemoglobin 14.4 gm/dL (13.5-18.0); Mean Cell Volume 81.4 fl (78-100); Mean Corpuscular Hemoglobin 29.1 pg (27-31); Mean Corpuscular Hgb Conc 35.7 g/dl (32-36); Mean Platelet Volume 9.4 fl (6.0-9.5); Neutrophil # 9.1 K/mm3 (1.3-6.0); Neutrophil % 78.2 % (42-75.0); Platelet Count 266 K/mm3 (150-450); Red Blood Count 4.95 M/mm3 (4.7-6.0); Red Cell Distribution Width 12.6 % (11.5-14.0); White Blood Count 11.6 K/mm3 (4.0-10.5)
[2017-10-23 10:51] LABS: Albumin * 2.7 gm/dl (3.4-5.0); Anion Gap 11.6 mmol/L (6.8-13.8); BUN/Creatinine Ratio 12.5 (9.0-21.6); Bilirubin, Total 0.6 mg/dL (0.0-1.1); Calcium * 8.3 mg/dL (7.9-10.9); Carbon Dioxide 27.2 mmol/L (24-32.6); Potassium 3.8 mmol/L (3.4-4.6); Total Protein 6.5 gm/dL (6.2-8.2)
[2017-10-23] MEDS ORDERED: AZITHROMYCIN 250 MG TABLET PO SCH (21:00)
[2017-10-23] MEDS ORDERED: DEXTROSE 50%-WATER 50 ML SYRG IV ONE (21:51)
[2017-10-23] MEDS: LISINOPRIL 10 MG TABLET PO SCH (21:59)
[2017-10-23] MEDS: cefTRIAXone SODIUM 1,000 MG in DEXTROSE 5 % IN WATER 50 ML IV SCH ×2 (22:00)
[2017-10-24] MEDS: INSULIN LISPRO 100 UNITS/ML VIAL SC SCH ×4 (07:31→11:56)
[2017-10-24] MEDS: LEVOTHYROXINE SODIUM 50 MCG TABLET PO SCH (07:32)
[2017-10-24] MEDS: FAMOTIDINE 20 MG TABLET PO SCH (09:02)
[2017-10-24] MEDS: INSULIN DETEMIR 100 UNITS/ML VIAL SC SCH (09:02)
[2017-10-24] MEDS: CYANOCOBALAMIN 1,000 MCG TABLET PO SCH (09:02)
[2017-10-24] MEDS: CHOLECALCIFEROL 1,000 UNIT CAPSULE PO SCH (09:02)
--- NOTE | 2017-10-24 14:32 | DS ---
(1) Probable Pneumonia Problem: Acute (2) Dehydration Problem: Acute (3) T2DM (type 2 diabetes mellitus) Problem: Chronic (4) Hypertension Problem: Chronic Qualifiers: Hypertension type: essential hypertension Qualified Code(s): I10 - Essential (primary) hypertension Description of Stay: DATE OF ADMISSION: 10/20/17. DATE OF DISCHARGE: 10/24/17. DIAGNOSTICS: CT HEAD W/O 10/20/17. ADMITTING HPI: 87 years old white male adm to the hospital with reports of nausea, vomiting , diarrhea, weakness and unable to walk.pt stated his s/s began yesterday, but he began having a cough accompanied with shortness of breath today. He decided its time to seek help, so he called EMS that brought him to the ER. He denies fever , chills, chest pain and haven't had diarrhea or vomiting since this morning. PMH significant for diabetes, hypothyroidism, skin cancer,hypertension and hyperlipidemia. In ER Hypoxic 87% on RA, WBC 17.1, Temp 39 Lactic acid 2.4, Per ERP CXR:B LL pneumonia and RML pneumonia and atelactasis dependent . CT head negative . In ER he was started on Rocephin and Azithromycin.Plan of care discussed with pt he verbalized understanding and agrees. By Ki Love [employer][hospitalist]. DISCHARGE SUMMARY: Hank Ballesteros is a 87-year-old WM with a H/O HTN, HLD, T2 DM, hypothyroidism, who presented with cough, SOB, upper back pain, hypoxia with sats of 87% on RA for 2 days [employer]. Possible infiltrates on CXR by ERP later read as normal by radiologist. WBC - 17.1K, lactic acid 2.4. Started on CTX 1 g IV daily and azithromycin 500 mg IV daily for presumed pneumonia. On 10/21/17: WBC 20.7 K with 9% bands. Patient placed on oxygen which was gradually weaned off. Labs were trended which improved. BUN/CR 20/ 1.43 with GFR 50 ml/min[10/20/17] which improved to 14/1.12 with GFR 66 ml/min with IV fluids given for hydration. WBC came down to 11.6 on 10/24/17. Since chest x-ray was clear other sources of infection were checked for. Right lower extremity had chronic edema with a small well-healed ulcer. Small open area present on one of the cheeks of the buttocks which was extremely superficial. One out of 2 blood cultures was positive for strep pyogenes A[ most likely a contaminant]. Repeat blood cultures on 10/24/17 had no growth. Patient's condition at the time of discharge was stable. RADIOLOGY REPORTS: CT HEAD W/O: 10/20/17: There is atrophy. There is chronic microvascular ischemic change of the white matter. Paranasal sinuses are clear. Mastoid cells are well pneumatized. IMPRESSION: NO ACUTE INTRACRANIAL PROCESS DETECTED. CXR: SINGLE VIEW: 10/20/17: Extensive fibrotic scarring and emphysema seen within the lungs bilaterally. This is in the bases greater than in the upper lobes. IMPRESSION: EXTENSIVE CHRONIC LUNG DISEASE WITHOUT ACUTE OR FOCAL CARDIOPULMONARY PROCESS. ABDOMEN-FLAT/UPRIGHT: 10/20/17: No free air. Reason IVC filter. There are clips in the RUQ. There is scattered fecal retention. There are vascular calcifications. IMPRESSION: NO ACUTE PLAIN FILM PATHOLOGY. A total of 35 minutes was spent with the patient 1. Discussing test results, plan of care and patient education. 2. Reconciliation of medications, discharge plans, preparing and dictating discharge summary. Procedures Performed: none Results and Findings: Laboratory Tests 10/20/17 10/21/17 10/23/17 19:15 05:00 10:27 WBC 17.1 H 20.7 H D 11.6 H D Hgb 15.0 14.1 14.4 Hct 42.6 41.3 L 40.3 L Plt Count 326 281 266 Band Neuts % (Manual) 9 H 10/20/17 10/21/17 10/23/17 19:15 05:00 10:27 Plasma Sodium 141 142 137 Potassium 4.9 H 4.7 H 3.8 Chloride 102 105 101 Carbon Dioxide 26.7 27.0 27.2 BUN 20 23 14 Creatinine 1.43 H 1.60 H 1.12 Est GFR (Non-Af Amer) 50 L D 44 L 66 10/20/17 19:15 ESR 25 Troponin I <0.017 C-Reactive Prot, Quant 1.1 H Procalcitonin 0.76 H 10/20/17 10/20/17 19:25 22:05 Lactic Acid, Venous 2.4 H* 2.2 H* 10/20/17 10/20/17 18:45 19:56 Influenza Type A Ag Negative Influenza Type B Ag Negative Urine Legionella Ag Not detected S. pneumoniae Ag Intrp Not detected Discharge Location: Home Disposition: Home self-care Condition: Undetermined Discharge Activity: Activity as tolerated Discharge Diet: Consistent carbs, Low salt, Low fat/chol, High Fiber Problem Oriented Discharge Instructions to Patient/Family: Dehydration, Adult, [id number], Community-Acquired Pneumonia, Adult, [id number] Additional Patient Instructions (free text): -Please make TCM appointment unless [facility] discharge. Thank you! Leslee @ [phone]. Sleep on side and keep your butt open to air for several hours so the wound can heal. [facility] courtesy visit. Please call report and fax orders upon discharge. Apply TEA TREE OIL to fingernails twice a day for a year - 50% chance of healing. Take metformin ER twice a day with food. Can increase vitamin D3 from 1000 units 2 2000 units daily with food. Patient to take bedtime snack : 1. Peanut butter/ wheat bread 2. Burmese yogurt - 6 ounces. 3. 3 ounces nuts-unsalted[almonds, walnuts]. Make appointment with Dr. Medeiros in 7-10 days.Follow up on 11-01-17 @ 2:15pm. F/U with Dr Ramos outpatient for toenail care on 01-04-18 @ 1:30pm. Complete Home Medications List: Complete Home Medication List: Cholecalciferol (Vitamin D3) [Vitamin D3] 1,000 unit PO DAILY 10/20/17 Cyanocobalamin (Vitamin B-12) [Vitamin B12] 2,500 mcg PO DAILY 10/20/17 Insulin Detemir [Levemir] 20 unit SQ BID 10/20/17 Levothyroxine Sodium [Levo-T] 50 mcg PO DAILY 10/20/17 Lisinopril [Zestril] 10 mg PO HS 10/20/17 metFORMIN HCL [Metformin HCl ER] 500 mg PO BID 10/20/17
[2017-10-24 15:37] VITALS: BP 166/88
== END 2017-10-24 15:45 | disposition home or self-care (01) | DRG 195 ==
LOC: ER 18:41 → MS 21:22
PROVIDERS: ADMIT Nurse Practitioner; ATTEND Internal Medicine
DX: J18.9 Pneumonia, unspecified organism (principal); R09.02 Hypoxemia; H02.103 Unspecified ectropion of right eye, unspecified eyelid; H02.106 Unspecified ectropion of left eye, unspecified eyelid; E86.0 Dehydration; M19.071 Primary osteoarthritis, right ankle and foot; E11.9 Type 2 diabetes mellitus without complications; I10 Essential (primary) hypertension; E03.9 Hypothyroidism, unspecified; Z79.4 Long term (current) use of insulin
CPT/HCPCS: 36415; 70450; 71045; 71046; 73610; 73630; 74019; 80053; 81001; 82009; 83036; 83605; 83880; 84145; 84484; 84550; 85007; 85025; 85652; 86140; 87040; 87077; 87400; 87449; 93005; 96361; 96365; 96367; 96375; 97110; 97112; 97116; 97161; 99285; J2405

== ENCOUNTER 2019-07-08 15:40 | Inpatient (IN) ==
[2019-07-08] MEDS ORDERED: ACETAMINOPHEN 1,000 MG/100 ML BTL IV ONE (15:53)
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
[2019-07-08 16:13] LABS: Hematocrit 39.3 % (42.0-52.0); Hemoglobin 13.2 gm/dL (13.5-18.0); Mean Cell Volume 89.1 fl (78-100); Mean Corpuscular Hemoglobin 29.9 pg (27-31); Mean Corpuscular Hgb Conc 33.6 g/dl (32-36); Mean Platelet Volume 8.9 fl (8-11.3); Neutrophil # 8.7 K/mm3 (1.3-6.0); Neutrophil % 69.6 % (42-75.0); Platelet Count 396 K/mm3 (150-450); Red Blood Count 4.41 M/mm3 (4.7-6.0); Red Cell Distribution Width 12.3 % (11.5-14.0); White Blood Count 12.5 K/mm3 (4.0-10.5)
[2019-07-08 16:24] LABS: Albumin * 3.3 gm/dl (3.4-5.0); Anion Gap 10.1 mmol/L (6.8-13.8); BUN/Creatinine Ratio 10.5 (9.0-21.6); Bilirubin, Total 0.5 mg/dL (0.0-1.1); Calcium * 8.8 mg/dL (7.9-10.9); Carbon Dioxide 26.2 mmol/L (24-32.6); Potassium 4.3 mmol/L (3.4-4.6)
[2019-07-08] MEDS ORDERED: MORPHINE SULFATE 2 MG/ML DISP.SYRIN IV ONE (17:22)
[2019-07-08] MEDS: MORPHINE SULFATE 4 MG/ML SYRG IV PRN ×2 (19:17→23:42)
[2019-07-08] MEDS ORDERED: FUROSEMIDE 10 MG/ML VIAL IV ONE ×2 (19:57→22:00)
--- NOTE | 2019-07-08 19:57 | HP ---
Chief Complaint - Chief Complaint Date of Service: 07/08/19 Time of Service: 19:41 Chief Complaint: right hip fracture History of Present Illness: Patient with past medical history of diabetes, high blood pressure, hypothyroidism, skin cancers suffered a hip fracture after ground-level fall today. He was working on his car did not have his walker with him and lost his balance. He laid outside for approximately 20 minutes before help arrived, and the temperature was around 40 degrees today. Hip x-ray in the ED showed a right hip fracture, official read pending. He reports having bilateral lower extremity edema for a couple of weeks. He reports choosing to stop his medicines, and has not taken anything in about 3 weeks. He states his blood glucose has been mostly in the 140s. He agrees with restarting insulin and lisinopril as needed throughout his hospital stay. He denies signs of infection. Denies fevers, sore throat, cough, vomiting, diarrhea, dysuria, skin ulcers. He does have some sinus congestion, but he states this is baseline. 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 Left [place], right nasal bridge. H/O extropion after surgery on the right lower lip and full thickness skin graft with lateral tarsal strip 09/22. Left nose and cheek 10/24 and 06/27. Surgical History: Surgical History (Last Reviewed 07/08/19 @ 17:51 by Renée Reza RN) Status post surgical removal of malignant neoplasm of skin (Acute) ulcerated skin cancer lesion removed by Dr. Bower several weeks ago, 2019 History of nasal surgery (Resolved) Onset Date: ~1998 cancer Hx laparoscopic cholecystectomy (Resolved) Onset Date: ~02/02/09 tinguely-acute/chronic cholecystitis History of eye surgery (Resolved) Onset Date: Unknown right eye graft x 2 H/O colonoscopy (Resolved) Onset Date: ~2001 H/O eye surgery (Resolved) Onset Date: ~11/2005 bilateral cataract surgery Family History: Family History (Last Reviewed 07/08/19 @ 17:51 by Renée Reza RN) Father , age 47 colon cancer Cancer colon Mother , age 80 Pneumonia Brother , age 68 Cancer stomach Brother , age 72 Cancer Lung Sister , age 58 Cancer breast Social History: (Last Reviewed 07/08/19 @ 17:51 by Renée Reza RN) Social History: adopted: No foster care: No Marital status: / lives independently: Yes household members: none caregiver/support person: No current occupational status: retired Highest education level completed: GED or equivalent Service: No Tobacco: Smoking Status: Former smoker how long ago did patient quit smoking: pt quit smoking in 1985 Alcohol: alcohol intake: never Substance Use: substance use type: does not use Dietary Habits: caffeine: Yes caffeine comment: 4/day Type: coffee, tea Review Of Systems (GEN) - Review of Systems Generalized/Overall Review: Absent: Fever Respiratory: Absent: Cough, Shortness of Breath Cardiac: Present: Edema. Absent: Chest Pain Abdominal: Absent: Nausea, Vomiting, Constipation, Diarrhea Genitourinary: Absent: Dysuria Musculoskeletal: Present: Joint Pain - Right hip, Back Pain Skin: Present: Other - Skin tear of right elbow Immunizations: IMMUNIZATION HX Immunizations Up to Date Yes History of Influenza Vaccine Yes Hx Pneumococcal Vaccination Yes Allergies/Adverse Reactions: Allergies Allergy/AdvReac Type Severity Reaction Status Date / Time atorvastatin [From Lipitor] AdvReac leg Verified 07/08/19 17:51 cramps, myalgia naproxen [From Naprosyn] AdvReac Ulcer Verified 07/08/19 17:51 pravastatin [From Pravachol] AdvReac myalgias, Verified 07/08/19 17:51 leg cramps rosuvastatin [From Crestor] AdvReac leg cramps Verified 07/08/19 17:51 simvastatin [From Zocor] AdvReac myalgias, Verified 07/08/19 17:51 leg cramps Home Medications: HOME MEDICATIONS levothyroxine 50 mcg tablet 50 mcg PO DAILY #90 tab 01/08/19 [Last Taken Unknown] blood sugar diagnostic See Dose Instructions .ROUTE .MEDSUPPLY #100 ea 01/15/19 [Last Taken Unknown] Durable Medical Equipment See Rx Instructions .ROUTE .MEDSUPPLY #1 ea 03/22/19 [Last Taken Unknown] oxyCODONE HCL/ACETAMINOPHEN [Percocet 5 MG/325 MG] 1 - 2 tab PO Q6H PRN #8 tab 03/28/19 [Last Taken Unknown] insulin detemir U-100 100 unit/mL subcutaneous solution 17 unit SUBCUT DAILY ml 05/10/19 [Last Taken Unknown] furosemide 20 mg tablet 20 mg PO DAILY 05/31/19 [Last Taken Unknown] Lisinopril [Zestril] 5 mg PO QAM 07/08/19 [Last Taken Unknown] Lisinopril [Zestril] 10 mg PO HS 07/08/19 [Last Taken Unknown] Exam - Exam Vital Signs: Vital Signs - Last Taken Temp 37.0 C 07/08/19 15:44 Pulse 98 07/08/19 17:32 Resp 19 07/08/19 17:32 BP 167/74 H 07/08/19 17:32 Pulse Ox 95 07/08/19 17:32 Constitutional: Present: Alert, Oriented x3, Cooperative, Elderly ENT Exam: Present: other - Postop changes of his nose, well-healed right forehead and left lower face surgical scars Respiratory: Present: lungs clear, normal breath sounds, no respiratory distress Cardiovascular/Chest: Present: regular rate, rhythm Abdomen: Present: Normal bowel sounds, soft, nontender Extremity: Present: lower extremity edema - 2+ bilaterally, other - Right lower leg laterally rotated and foreshortened Skin Exam: Present: other - Flaky skin of right medial lower leg. tagederm in place over right elbow and skin tear Neurologic: Absent: sensory deficit Appearance: Present: appropriate insight Eye contact: Present: cooperative, good eye contact Thoughts: Present: normal mood /affect Diagnostic Studies: Abnormal Lab Results 07/08/19 07/08/19 Range/Units 16:05 16:05 WBC 12.5 H (4.0-10.5) K/mm3 RBC 4.41 L (4.7-6.0) M/mm3 Hgb 13.2 L (13.5-18.0) gm/dL Hct 39.3 L (42.0-52.0) % Immature Gran % (Auto) 0.60 H (0.001-0.429) % Immature Gran # (Auto) 0.08 H (0.000-0.0310) K/mm3 Lymphocytes % 17.2 L (20-51) % Eosinophils % 3.4 H (0.0-3.0) % Neutrophils # 8.7 H (1.3-6.0) K/mm3 Random Glucose 143 H (70-110) mg/dL Albumin 3.3 L (3.4-5.0) gm/dl Laboratory Results WBC 12.5 K/mm3 (4.0-10.5) H 07/08/19 16:05 RBC 4.41 M/mm3 (4.7-6.0) L 07/08/19 16:05 Hgb 13.2 gm/dL (13.5-18.0) L 07/08/19 16:05 Hct 39.3 % (42.0-52.0) L 07/08/19 16:05 MCV 89.1 fl (78-100) 07/08/19 16:05 MCH 29.9 pg (27-31) 07/08/19 16:05 MCHC 33.6 g/dl (32-36) 07/08/19 16:05 RDW 12.3 % (11.5-14.0) 07/08/19 16:05 Plt Count 396 K/mm3 (150-450) 07/08/19 16:05 MPV 8.9 fl (8-11.3) 07/08/19 16:05 Immature Gran % (Auto) 0.60 % (0.001-0.429) H 07/08/19 16:05 Immature Gran # (Auto) 0.08 K/mm3 (0.000-0.0310) H 07/08/19 16:05 Neutrophils % 69.6 % (42-75.0) 07/08/19 16:05 Lymphocytes % 17.2 % (20-51) L 07/08/19 16:05 Monocytes % 8.2 % (0.0-9) 07/08/19 16:05 Eosinophils % 3.4 % (0.0-3.0) H 07/08/19 16:05 Basophils % 1.0 % (0.0-1.0) 07/08/19 16:05 Nucleated RBC % 0.0 k/mm3 (0-1) 07/08/19 16:05 Neutrophils # 8.7 K/mm3 (1.3-6.0) H 07/08/19 16:05 Lymphocytes # 2.15 k/mm3 (1.5-3.5) 07/08/19 16:05 Monocytes # 1.0 k/mm3 (0.0-1.0) 07/08/19 16:05 Eosinophils # 0.4 k/mm3 (0.0-0.7) 07/08/19 16:05 Absolute Basophils 0.1 k/mm3 (0.0-0.1) 07/08/19 16:05 Sodium 135 mmol/L (132-142) 07/08/19 16:05 Plasma Sodium 136 mmol/L (130-142) 07/08/19 16:05 Potassium 4.3 mmol/L (3.4-4.6) 07/08/19 16:05 Chloride 103 mmol/L (97-106) 07/08/19 16:05 Carbon Dioxide 26.2 mmol/L (24-32.6) 07/08/19 16:05 Anion Gap 10.1 mmol/L (6.8-13.8) 07/08/19 16:05 BUN 12 mg/dL (6-23) D 07/08/19 16:05 Creatinine 1.14 mg/dL (0.4-1.4) 07/08/19 16:05 Est GFR (Non-Af Amer) 64 mL/min (60-130) D 07/08/19 16:05 BUN/Creatinine Ratio 10.5 (9.0-21.6) 07/08/19 16:05 Random Glucose 143 mg/dL (70-110) H 07/08/19 16:05 Calcium 8.8 mg/dL (7.9-10.9) 07/08/19 16:05 Calcium Adj for Albumin 9.0 mg/dL (8.4-10.2) 07/08/19 16:05 Total Bilirubin 0.5 mg/dL (0.0-1.1) 07/08/19 16:05 AST 31 U/L (0-48) 07/08/19 16:05 ALT 24 U/L (19-67) 07/08/19 16:05 Alkaline Phosphatase 139 U/L (50-170) 07/08/19 16:05 Total Protein 7.0 gm/dL (6.2-8.2) 07/08/19 16:05 Albumin 3.3 gm/dl (3.4-5.0) L 07/08/19 16:05 Assessment/Plan - Assessment/Plan (1) Closed right hip fracture Assessment: Using the NSQIP surgical risk calculator, he is at average risk for any complication. Risk factors include age, male, diabetes using insulin, HTN, fall history. He is at increased risk for post-op delirium and functional decline. Likely will require a rehab stay at a facility prior to returning home. ERP reports orthopedics has been consulted. We will place a Silvestre catheter for surgery tomorrow afternoon. Pain control with 2 mg morphine every 30 minutes as needed and 5 mg Pratts every 3 hours as needed. He has Percocet on his home medication list, and can switch to this if needed. Of note, DVT is listed in his problem list in his chart. He is not currently anticoagulated. Anticoagulate per surgeon's post op recommendations. Problem: Acute Qualifiers: Encounter type: initial encounter Qualified Code(s): S72.001A - Fracture of unspecified part of neck of right femur, initial encounter for closed fracture (2) Hypertension Assessment: Blood pressure has been high since admission. Will restart his lisinopril. His medication list from rash and states he takes 10 mg lisinopril at bedtime and 5 mg lisinopril in the morning. Problem: Chronic Qualifiers: (3) T2DM (type 2 diabetes mellitus) Assessment: He previously was prescribed 15 units of Levemir twice daily. We will hold as he is currently n.p.o. If his blood sugar is higher than 200, will restart his home Levemir. Will check glucose with meals and at bedtime. Admission glucose was 143. Problem: Chronic Qualifiers: (4) COPD (chronic obstructive pulmonary disease) Assessment: Patient was unsure of this diagnosis, but is listed in his chart. His lungs are clear on exam. ED doc reports decreased oxygenation on arrival to the ED, in the mid 80s. He is currently using oxygen via nasal cannula, which he does not use at baseline. Will wean as tolerated. Problem: Chronic (5) Edema Assessment: He has 2+ bilateral lower extremity edema today. He reports stopping his 20 mg daily Lasix a few weeks ago. Will administer 20 mg IV Lasix tonight since he will have a Silvestre in place, and resume his 20 mg daily furosemide tomorrow. Unclear source. Chart review does not show that he has had an echo, which would investigate possible heart failure with reduced or preserved ejection fraction. Problem: Chronic (6) Hypothyroidism Problem: Chronic
[2019-07-08] MEDS: INSULIN LISPRO 100 UNITS/ML VIAL SC SCH (22:01)
[2019-07-08] MEDS: LISINOPRIL 10 MG TABLET PO SCH (22:02)
[2019-07-09] MEDS: MORPHINE SULFATE 4 MG/ML SYRG IV PRN ×2 (01:23→02:25)
[2019-07-09] MEDS: ONDANSETRON HCL/PF 2 MG/ML VIAL IV PRN (05:20)
[2019-07-09] MEDS: INSULIN LISPRO 100 UNITS/ML VIAL SC SCH ×3 (07:26→21:10)
[2019-07-09] MEDS ORDERED: ceFAZolin SODIUM 1 GM VIAL IV PRN (08:21)
[2019-07-09] MEDS: FUROSEMIDE 20 MG TABLET PO SCH (08:26)
[2019-07-09] MEDS: HYDROcodone/ACETAMINOPHEN 1 EACH TABLET PO PRN ×2 (08:26→21:15)
[2019-07-09] MEDS: LISINOPRIL 5 MG TABLET PO SCH (08:26)
--- NOTE | 2019-07-09 08:28 | CONS ---
HPI - General Date of Service: 07/09/19 Narrative: Patient was admitted to the medical surgical unit after arriving to the emergency department for a ground-level fall. Patient reports he was walking outside when he sustained this fall. He was unable to get up and ambulate. They report he lied on the ground for approximately 20 minutes in the outside temperatures of around 40 degrees. He reports that this time his whole leg hurts. Reports no other injuries complaining to this fall. He reports he lives at home independent. - History of Present Illness Timing/Duration: 24 hours Allergies/Adverse Reactions: Allergies atorvastatin [From Lipitor] Adverse Reaction (Verified 07/08/19 17:51) leg cramps, myalgia naproxen [From Naprosyn] Adverse Reaction (Verified 07/08/19 17:51) Ulcer pravastatin [From Pravachol] Adverse Reaction (Verified 07/08/19 17:51) myalgias, leg cramps rosuvastatin [From Crestor] Adverse Reaction (Verified 07/08/19 17:51) leg cramps simvastatin [From Zocor] Adverse Reaction (Verified 07/08/19 17:51) myalgias, leg cramps Home Medications: Home Medications Medication Instructions Recorded Last Taken levothyroxine 50 mcg tablet 50 mcg PO DAILY #90 tab 01/08/19 Unknown blood sugar diagnostic See Dose Instructions .ROUTE 01/15/19 Unknown .MEDSUPPLY #100 ea Durable Medical Equipment See Rx Instructions .ROUTE 03/22/19 Unknown .MEDSUPPLY #1 ea oxyCODONE HCL/ACETAMINOPHEN 1 - 2 tab PO Q6H PRN #8 tab 03/28/19 Unknown [Percocet 5 MG/325 MG] insulin detemir U-100 100 unit/mL 17 unit SUBCUT DAILY ml 05/10/19 Unknown subcutaneous solution furosemide 20 mg tablet 20 mg PO DAILY 05/31/19 Unknown Lisinopril [Zestril] 5 mg PO QAM 07/08/19 Unknown Lisinopril [Zestril] 10 mg PO HS 07/08/19 Unknown Procedures Application of splint (02/09/11) Colonoscopy (01/22/02) Laparoscopic cholecystectomy (02/02/09) Medications - Medications Current Medications: Current Medications Insulin Human Lispro (Humalog) 0 units [facility]; Protocol Stop: 08/07/19 21:16 Last Admin: 07/09/19 07:26 Dose: Not Given Documented by: Lisinopril (Zestril) 10 mg PO HS DHRUV Stop: 08/07/19 21:01 Last Admin: 07/08/19 22:02 Dose: 10 mg Documented by: Ondansetron HCl (Zofran) 4 mg IV Q4H PRN PRN Reason: Nausea And Vomiting Stop: 08/07/19 17:34 Last Admin: 07/09/19 05:20 Dose: 4 mg Documented by: Physical Examination - Exam Narrative: Patient is lying in bed. His right lower extremity is externally rotated. He reports inguinal pain with logroll test. He is able to plantarflex and dorsiflex the right ankle. He reports sensation intact light touch in the right lower extremity. Pulses intact right lower extremity. X-rays reviewed show a displaced right subcapital hip fracture. Labs reviewed. Vital Signs: Vital Signs - Last Taken Temp 37.0 C 07/09/19 07:14 Pulse 100 07/09/19 07:14 Resp 16 07/09/19 07:14 BP 161/80 H 07/09/19 07:14 Pulse Ox 90 L 07/09/19 07:14 O2 Oxygen Delivery Method Room Air - Results and Findings: Lab/Microbiology results last 24 hrs: Abnormal/Pending Laboratory Last 24 HRS 07/08/19 07/08/19 16:05 16:05 WBC 12.5 H RBC 4.41 L Hgb 13.2 L Hct 39.3 L Immature Gran % (Auto) 0.60 H Immature Gran # (Auto) 0.08 H Lymphocytes % 17.2 L Eosinophils % 3.4 H Neutrophils # 8.7 H Random Glucose 143 H Albumin 3.3 L - Assessments/Findings (1) Subcapital fracture of right hip Diagnosis(s): Discussed with patient the nature of his injury. Recommend hemiarthroplasty pending medical work-up and clearance. Patient's leg was marked. He will be made n.p.o. at this time. Risks of surgery discussed with patient. Will obtain consents. He will have a gram of Ancef IV preop. Problem: Acute (2) COPD (chronic obstructive pulmonary disease) Problem: Chronic (3) DVT (deep venous thrombosis) Problem: Chronic (4) Diabetes 1.5, managed as type 2 Problem: Chronic (5) Hyperlipidemia Problem: Chronic (6) Hypertension Problem: Chronic Qualifiers: (7) Hypothyroidism Problem: Chronic (8) Peptic ulcer disease Problem: Chronic (9) Prostatic hypertrophy Problem: Chronic
[2019-07-09] MEDS ORDERED: ACETAMINOPHEN 325 MG TABLET PO PRN (09:01)
--- NOTE | 2019-07-09 09:18 | PN ---
Subjective - Date and Time Seen Date: 07/09/19 Time: 09:09 Subjective Narrative: I have mild right hip pain Objective Objective Narrative: 89-year-old male admitted for right femoral neck fracture secondary to fall that occurred in his home yesterday, was evaluated at bedside was found to be afebrile and in no acute distress. Patient had an uneventful night, nothing very concerning was reported. He maintains stable vitals and is and good spirits. During bedside evaluation the patient explained that he fell when he slipped on the grass outside his home while attempting to get an extension cord to work on his car. Patient has had multiple falls this year likely secondary to his issues with balance. Therefore after surgery we will arrange rehabilitation for him to recover from his fall but to also address problems with balance. He is scheduled for surgery this afternoon by the orthopedic surgeon we will follow-up with him after the procedure. - Review of Systems Generalized/Overall Review: Reports: No Symptoms Reported EENTM: Reports: No Symptoms Reported Respiratory: Reports: No Symptoms Reported Cardiac: Reports: No Symptoms Reported Abdominal: Reports: No Symptoms Reported Genitourinary Symptoms: Reports: No Symptoms Reported Musculoskeletal Complaints: Reports: Joint Pain - Right hip pain Neurological: Reports: No Symptoms Reported, Pre-existing Deficit Endocrine: Reports: No Symptoms Reported - Vitals Vitals: Last Vital Signs Temp 37.0 C 07/09/19 07:14 Pulse 100 07/09/19 08:26 Resp 16 07/09/19 07:14 BP 161/80 H 07/09/19 08:26 Pulse Ox 90 L 07/09/19 07:14 - Abnormal Lab Findings Abnormal Lab Findings: Abnormal Lab Results 07/08/19 07/08/19 Range/Units 16:05 16:05 WBC 12.5 H (4.0-10.5) K/mm3 RBC 4.41 L (4.7-6.0) M/mm3 Hgb 13.2 L (13.5-18.0) gm/dL Hct 39.3 L (42.0-52.0) % Immature Gran % (Auto) 0.60 H (0.001-0.429) % Immature Gran # (Auto) 0.08 H (0.000-0.0310) K/mm3 Lymphocytes % 17.2 L (20-51) % Eosinophils % 3.4 H (0.0-3.0) % Neutrophils # 8.7 H (1.3-6.0) K/mm3 Random Glucose 143 H (70-110) mg/dL Albumin 3.3 L (3.4-5.0) gm/dl - Exam Constitutional: Present: Alert, Oriented x3, Cooperative, Well developed, No distress, Elderly ENT Exam: Present: pharynx normal, hard of hearing Neck: Present: non-tender, full range of motion, supple, normal inspection, tra tiffani midline Breasts: Present: Exam deferred Respiratory: Present: chest non-tender, lungs clear, normal breath sounds, no respiratory distress, no accessory muscle use Cardiovascular/Chest: Present: normal peripheral pulses, regular rate, rhythm, no chest tenderness, no edema, no gallop, no JVD, no murmur, no rub Abdomen: Present: Normal bowel sounds, soft, nontender, nondistended, no rebound tenderness, no hepatospenomegaly, no masses /Rectal: Present: Exam deferred Extremity: Present: no pedal edema, no calf tenderness, normal capillary refill, other - Erythema of lower extremities with residual pedal edema, right lower extremity shortened and externally rotated. Right hip is tender to touch. Lymphatic: Present: no adenopathy Neurologic: Present: senior linux unix engineer II-XII nml as tested, no motor/sensory deficits, alert, normal mood/affect, oriented x 3 Appearance: Present: appropriate appearance, appropriate insight, neat, no memory impairment Eye contact: Present: cooperative, good eye contact, normal speech Thoughts: Present: normal thought pattern Assessment/Plan Plan Narrative: Patient has been placed on n.p.o., his lab results have been evaluated and his hemoglobin and electrolytes are adequate for the scheduled surgery. Currently he maintained stable vitals and no contraindication to the procedure were found. We will follow-up with him after the surgery and monitor him closely. Patient is a known diabetic, however given his n.p.o. status in order to prepare him for surgery long-acting insulin was held. We will cover him with a sliding scale and check his blood sugars periodically until the patient is able to initiate oral intake. - Problems/Diagnosis (1) Displaced fracture of left femoral neck Problem: Acute (2) Balance problem Problem: Acute (3) Poor social situation Problem: Acute (4) Frail elderly Problem: Acute (5) Diabetes 1.5, managed as type 2 Problem: Acute
[2019-07-09] MEDS: MORPHINE SULFATE 2 MG/ML DISP.SYRIN IV PRN ×2 (10:05→13:05)
[2019-07-09] MEDS ORDERED: ceFAZolin SODIUM 1 GM in DEXTROSE 5 % IN WATER 100 ML IV SCH ×2 (10:15)
[2019-07-09] MEDS: NORMAL SALINE 1,000 ML IV ONE ×3 (10:32→17:30)
--- NOTE | 2019-07-09 13:04 | ANES ---
Anesthesia Pre Procedure Eval Vitals/Labs: Last Vital Signs Temp 37.3 C 07/09/19 10:11 Pulse 109 H 07/09/19 11:00 Resp 20 07/09/19 10:11 BP 159/79 H 07/09/19 10:11 Pulse Ox 93 07/09/19 10:11 HOME MEDICATIONS levothyroxine 50 mcg tablet 50 mcg PO DAILY #90 tab 01/08/19 [Last Taken Unknown] blood sugar diagnostic See Dose Instructions .ROUTE .MEDSUPPLY #100 ea 01/15/19 [Last Taken Unknown] Durable Medical Equipment See Rx Instructions .ROUTE .MEDSUPPLY #1 ea 03/22/19 [Last Taken Unknown] oxyCODONE HCL/ACETAMINOPHEN [Percocet 5 MG/325 MG] 1 - 2 tab PO Q6H PRN #8 tab 03/28/19 [Last Taken Unknown] insulin detemir U-100 100 unit/mL subcutaneous solution 17 unit SUBCUT DAILY ml 05/10/19 [Last Taken Unknown] furosemide 20 mg tablet 20 mg PO DAILY 05/31/19 [Last Taken Unknown] Lisinopril [Zestril] 5 mg PO QAM 07/08/19 [Last Taken Unknown] Lisinopril [Zestril] 10 mg PO HS 07/08/19 [Last Taken Unknown] Allergies/Adverse Reactions: Allergies Allergy/AdvReac Type Severity Reaction Status Date / Time atorvastatin [From Lipitor] AdvReac leg Verified 07/08/19 17:51 cramps, myalgia naproxen [From Naprosyn] AdvReac Ulcer Verified 07/08/19 17:51 pravastatin [From Pravachol] AdvReac myalgias, Verified 07/08/19 17:51 leg cramps rosuvastatin [From Crestor] AdvReac leg cramps Verified 07/08/19 17:51 simvastatin [From Zocor] AdvReac myalgias, Verified 07/08/19 17:51 leg cramps - Planned Procedure Planned Procedure: fall rt hip and leg pain Medication List Reviewed:: Yes Allergies Verified: Yes Medical History (Last Reviewed 07/09/19 @ 13:03 by Adelso Howard CRNA) skin cancer removal (Resolved) Onset Date: ~2014 2014, 2015 Basal cell carcinoma-left cheek squamous cell -[facility] H/O squamous cell carcinoma (Chronic) Onset Date: ~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 Left [facility], right nasal bridge. H/O extropion after surgery on the right lower lip and full thickness skin graft with lateral tarsal strip 09/22. Left nose and cheek 10/24 and 06/27. Surgical History (Last Reviewed 07/09/19 @ 13:03 by Adelso Howard CRNA) Status post surgical removal of malignant neoplasm of skin (Acute) ulcerated skin cancer lesion removed by Dr. Bower several weeks ago, 2019 History of nasal surgery (Resolved) Onset Date: ~1998 cancer Hx laparoscopic cholecystectomy (Resolved) Onset Date: ~02/02/09 tinguely-acute/chronic cholecystitis History of eye surgery (Resolved) Onset Date: Unknown right eye graft x 2 H/O colonoscopy (Resolved) Onset Date: ~2001 H/O eye surgery (Resolved) Onset Date: ~11/2005 bilateral cataract surgery Family History (Last Reviewed 07/09/19 @ 13:03 by Adelso Howard CRNA) Father , age 47 colon cancer Cancer colon Mother , age 80 Pneumonia Brother , age 68 Cancer stomach Brother , age 72 Cancer Lung Sister , age 58 Cancer breast - Family Anesthesia History Family History:: no untoward family reactions to anesthesia - Airway/Neck/Teeth Denture Type: Full upper, Full lower Neck Exam: limited range of motion Mallampatti Score: 3 Thyromental (T-M) distance: > 6 cm Mandibulo Hyoid distance: > 3 cm - Respiratory Respiratory History: COPD Respiratory Physical: decreased breath sounds Smoking Status: Former smoker Sleep Apnea currently treated: No Sleep Apnea by current assessment: No - Cardiovascular Cardiac History: hyperlipidemia Tolerate Activity: Poor Heart Sounds: S1 & S2, Regular - Anesthesia Assessment and Plan ASA Class: PS, III Anesthesia Type Plan: Spinal Planned difficult intubation/equipment available: No
[2019-07-09] MEDS ORDERED: PHENYLEPHRINE HCL 10 MG/ML AMPUL ONE (14:12)
[2019-07-09] MEDS ORDERED: MIDAZOLAM HCL/PF 5 MG/ML VIAL ONE (14:12)
[2019-07-09] MEDS ORDERED: BUPIVACAINE HCL/PF 10 ML VIAL ONE (14:12)
[2019-07-09] MEDS ORDERED: NORMAL SALINE 20 ML VIAL ONE (14:13)
[2019-07-09] MEDS ORDERED: PROPOFOL VIAL IV ONE (14:13)
[2019-07-09] MEDS ORDERED: ceFAZolin SODIUM 1 GM VIAL ONE (14:48)
[2019-07-09] MEDS ORDERED: MAGNESIUM HYDROXIDE 30 ML UDC PO PRN (17:44)
[2019-07-09] MEDS ORDERED: MAG HYDROX/ALUMINUM HYD/SIMETH 30 ML UDC PO PRN (17:44)
[2019-07-09] MEDS ORDERED: MORPHINE SULFATE 2 MG/ML DISP.SYRIN IV PRN (17:44)
--- NOTE | 2019-07-09 17:44 | OR ---
Operative Report - Dictated Report Narrative: Date: 07/09/2019 Preoperative diagnosis: Closed right hip displaced femoral neck fracture. Postoperative diagnosis: Closed right hip displaced femoral neck fracture Procedure: Right hip cemented sola-arthroplasty. Surgeon: Rocky Stack M.D. Production Welder: Chirag Fraser PA-C (provided essential set of skilled, educated hands that assisted with transfer, positioning, prepping, draping, retraction, manipulation, placement of implants, irrigation, closure wounds, and application of dressings all of which could not be performed by the available surgical crew) Anesthesia: Spinal. Complications: None Specimens: Bone. Estimated blood loss: 100 milliliters. Retained implants: Depuy [place] size 4 basic cemented femoral stem. Size 51 millimeter outside diameter self-centering bipolar head with +1.5 millimeter cobalt chromium 28 mm femoral head. Indications: Mr. Ballesteros is a 89-year-old gentleman who fell at home. This patient was evaluated on the floor and found to have sustained a displaced femoral neck fracture. The risks and benefits were discussed with the patient as well as any power of staff attorney or family . The patient wished to proceed with surgical treatment. The risks, benefits, and alternatives discussed were , blood clots, bleeding, infection, nerve/tendon blood vessel/ injury, malposition of components, dislocation and/or instability of joint, intraoperative fracture, postoperative limited range of motion, persistent pain, failure of components, and need for additional procedures. Patient wished to proceed. Consent was obtained after answering all questions. Procedure: After marking the correct extremity on the floor, the patient was taken to the operating room. A timeout was performed. IV antibiotics consisting of Ancef were administered prior to the procedure. A spinal anesthetic was induced by anesthesia. A Silvestre catheter was inserted if not are in place. The patient was then transitioned to a lateral position on a well- padded pegboard. An axillary roll was placed. The head was in neutral position. The non-operative down leg was well-padded with SCD and JASWANT hose in place. The arms were supported and padded to protect from any undue pressure on the bony prominences and nerves. Well-padded anterior and posterior pelvic and chest posts were secured in order to maintain a stable position of the pelvis. This was placed so that the pelvis was perpendicular to the floor. The body was in line with the pelvis. Once it was felt that we had protected all the bony prominences and the patient was well secured with a safety belt as well, the leg was pre-scrubbed with alcohol, prepped and draped in a standard sterile fashion. A standard anterior lateral hip incision was marked out over the greater trochanter. Ioban drapes were then placed. The skin incision was then made. Sharp dissection with a scalpel utilizing cautery for hemostasis was carried out down to the gluteus and iliotibial band fascia. This was split in line with the skin incision. The greater trochanter bursa was excised. The anterior and posterior margins of the abductor tendon were identified. The anterior 1/2-1/3 of the tendon was tagged and reflected off the greater trochanter leaving a sleeve of tendon for repair at the completion of the case. This exposed the underlying hip joint capsule. An inverted T-type capsulotomy was made extending this up to the brim of the acetabulum. We encountered a hematoma at this point confirming an acute fracture as well as noted displacement of the femoral neck fracture. Using Homans to assist with elevation of the soft tissues off the anterior, superior, and inferior aspects of the femoral neck, the hip was then placed in a figure 4 position for a femoral neck cleanup cut to be made. With the leg in an externally rotated and adducted position, the cutting flag was utilized in order to eduar for a standard femoral neck cut approximately a fingerbreadth above the level of the lesser trochanter. This was done while protecting the surrounding soft tissues with Homans. The femoral head was then removed and sized for guidance on the size of the bipolar head. It was noted that there was no significant loss of articular cartilage on both the femoral head and weightbearing portions of the acetabulum. We then returned the leg to the table and turned our attention to the acetabulum. While protecting the surrounding soft tissues, the labrum and remaining tissue in the fovea were excised using a scalpel and cautery. The acetabulum was then protected with a sponge while we returned our attention to the femur. With the leg in a figure 4 position utilizing Homans for soft tissue protection, a box cutting osteotome, followed by Migueley awl, followed by serial broaches were utilized in order to prepare the femur. It was found that a size 4 broach gave good axial and rotational stability. The proximal femur was visualized to ensure that there were no signs of fracture. A series of heads were trialed. It was found that a + 1.5 mm femoral head gave good overall stability. There is minimal longitudinal instability. Hip range of motion was able to reach full extension and external rotation to greater than 75 degrees prior to impingement along the posterior acetabulum. The hip was able to be flexed to greater than 90 degrees with internal rotation greater than 60 degrees prior to anterior impingement. The limb lengths were near equal based on comparison to the contralateral side . At this point was felt this was the appropriately sized femoral components as well as neck and femoral head. The trial implants were removed. A canal cement plug was placed distally and the canal was thoroughly irrigated using pulsatile vacuum brush device. The canal was then thoroughly dried with a suction device. The cement was vacuum mixed per the injection maintenance technician's instructions and placed into a cement gun. Cement was then placed in the dry irrigated femur using modern cementing technique using a pressurizing device. The stem was then placed in t he appropriate version compared to her inupiat anatomy and held in place while the cement cured and the extruded cement was removed. Once the cement was fully cured, we ensured that the stem was stable and that there were no signs of fracture. The remaining extruded cement was removed, and the joint and the capsule were thoroughly evaluated to ensure there are no cement fragments. The final femoral bipolar head was then impacted in the place. The hip was then reduced and seated completely. The capsule was repaired with a single interrupted #1 Vicryl. The abductor tendon was repaired to the greater trochanter utilizing #5 Ethibond through drill holes. This was oversewn with #1 Vicryl. The fascia was closed with interrupted #1 Vicryl and strata fix barbed suture. The wounds were thoroughly irrigated as we closed in layers. The deep and subcutaneous fat layers were closed with 0 Vicryl. The subcutaneous tissue was closed with a running 3-0 Vicryl and the skin with nighat. All sponge, needle, blade, and instrument counts were correct prior to closing the wounds. Sterile dressings consisting of Xeroform, 4 x 4's, ABD, and tape were applied. The patient was awoken and transferred to her hospital bed and then to the postanesthesia care unit in stable condition. Postoperative condition: The plan is to return to the medical/surgical inpatient floor postoperatively. Postoperatively 24 hours of IV antibiotics, pain control, physical therapy, occupational therapy, and medical comanagement will be utilized. Patient will be weightbearing as tolerated with anterior hip precautions. Postoperative films will be obtained in the recovery room.
--- NOTE | 2019-07-09 18:14 | ANES ---
Post Anesthesia Discharge - Transfer of Care Transfer of Care handoff given to nurse: Yes - Discharge from PACU Discharge from PACU when meets criteria: Yes
--- NOTE | 2019-07-09 18:15 | ANES ---
Post Anesthesia Assessment - Vital Signs Vitals: Last Vital Signs Temp 36.7 C 07/09/19 17:55 Pulse 99 07/09/19 18:05 Resp 14 07/09/19 18:05 BP 111/63 07/09/19 18:05 Pulse Ox 99 07/09/19 18:05 Airway Patency: Normal - Mental Status Level Of Consciousness: Awake - Pain Level Pain Score: 0 - N/V Assessment Nausea/Vomiting Presence: None Dehydration:: No
[2019-07-09] MEDS: RINGER'S SOLUTION,LACTATED 1,000 ML IV PRN (18:27)
[2019-07-09] MEDS: ceFAZolin SODIUM 1 GM in DEXTROSE 5 % IN WATER 100 ML IV SCH ×2 (20:22)
[2019-07-09] MEDS: LISINOPRIL 10 MG TABLET PO SCH (21:15)
[2019-07-09] MEDS: SENNOSIDES/DOCUSATE SODIUM 1 TAB TABLET PO SCH (21:16)
[2019-07-10] MEDS: ceFAZolin SODIUM 1 GM in DEXTROSE 5 % IN WATER 100 ML IV SCH ×4 (02:29→09:39)
[2019-07-10 06:26] LABS: Hematocrit 40.4 % (42.0-52.0); Hemoglobin 13.7 gm/dL (13.5-18.0); Mean Cell Volume 88.2 fl (78-100); Mean Corpuscular Hemoglobin 29.9 pg (27-31); Mean Corpuscular Hgb Conc 33.9 g/dl (32-36); Platelet Count 391 K/mm3 (150-450); Red Blood Count 4.58 M/mm3 (4.7-6.0); Red Cell Distribution Width 12.1 % (11.5-14.0); White Blood Count 15.4 K/mm3 (4.0-10.5)
[2019-07-10 06:30] LABS: Anion Gap 11.1 mmol/L (6.8-13.8); Calcium * 8.4 mg/dL (7.9-10.9); Carbon Dioxide 26.7 mmol/L (24-32.6); Estimated Creat Clear 41.8; Potassium 4.8 mmol/L (3.4-4.6)
[2019-07-10] MEDS: INSULIN LISPRO 100 UNITS/ML VIAL SC SCH ×3 (07:35→17:43)
--- NOTE | 2019-07-10 08:50 | PN ---
Subjective - Date and Time Seen Date: 07/10/19 Time: 08:43 Subjective Narrative: My pain is controlled I am comfortable Objective Objective Narrative: 89-year-old male status post right hemiarthroplasty of the femur to repair a right femoral neck fracture postoperative day #1, was evaluated at bedside and was found to be afebrile and in no acute distress. Patient denies any new symptoms and reports his pain is under controlled with the pain medication he is being administered. However he does report mild discomfort when he tries to shift positions or apply any weight on his right side. He was instructed to ask for assistance during transfers and changing of positions to avoid any complications with his postoperative care. Ortho has ordered physical therapy and occupational therapy to be started during the hospitalization and the patient was placed on Lovenox for anticoagulation. Postoperative hemoglobin on this morning's labs is actually higher than the preoperative and appears to be maintaining, will continue to monitor it. Patient also maintains stable vitals and no other concerns were found during today's evaluation. - Review of Systems Generalized/Overall Review: Reports: No Symptoms Reported EENTM: Reports: No Symptoms Reported Respiratory: Reports: No Symptoms Reported Cardiac: Reports: No Symptoms Reported Abdominal: Reports: No Symptoms Reported Genitourinary Symptoms: Reports: No Symptoms Reported Musculoskeletal Complaints: Reports: Joint Pain Neurological: Reports: No Symptoms Reported Skin: Reports: No Symptoms Reported Endocrine: Reports: No Symptoms Reported - Vitals Vitals: Last Vital Signs Temp 36.6 C 07/10/19 06:48 Pulse 113 H 07/10/19 06:48 Resp 24 H 07/10/19 06:48 BP 159/94 H 07/10/19 06:48 Pulse Ox 94 07/10/19 06:48 - Abnormal Lab Findings Abnormal Lab Findings: Abnormal Lab Results 07/10/19 07/10/19 Range/Units 06:10 06:10 WBC 15.4 H D (4.0-10.5) K/mm3 RBC 4.58 L (4.7-6.0) M/mm3 Hct 40.4 L (42.0-52.0) % Potassium 4.8 H (3.4-4.6) mmol/L Random Glucose 183 H (70-110) mg/dL - Exam Constitutional: Present: Alert, Oriented x3, Cooperative, Well developed, Well nourished, No distress, Elderly ENT Exam: Present: normal ENT inspection, pharynx normal, TMs normal, hard of hearing Neck: Present: non-tender, full range of motion, supple, normal inspection, tr achea midline Breasts: Present: Exam deferred Respiratory: Present: chest non-tender, lungs clear, normal breath sounds, no respiratory distress, no accessory muscle use Cardiovascular/Chest: Present: normal peripheral pulses, regular rate, rhythm, no chest tenderness, no edema, no gallop, no JVD, no murmur, no rub Abdomen: Present: Normal bowel sounds, soft, nontender, nondistended, no rebound tenderness, no hepatospenomegaly, no masses /Rectal: Present: Exam deferred Extremity: Present: no pedal edema, no calf tenderness, other - Right hip covered by dry clean bandage there are no signs of bleeding or infection Skin Exam: Present: warm/dry, no cyanosis, other - Residual erythema on right lower extremity Lymphatic: Present: no adenopathy Neurologic: Present: engineering manager II-XII nml as tested, normal cerebellar test, no motor/sensory deficits, alert, normal mood/affect, oriented x 3 Appearance: Present: appropriate appearance, appropriate insight, neat, no memory impairment Eye contact: Present: cooperative, good eye contact Thoughts: Present: normal thought pattern, no apparent hallucination Cauti Physician Documentation - Urinary Catheter Management Silvestre Date of Removal: 07/10/19 Time of Removal: 06:20 Assessment/Plan Plan Narrative: We will continue to monitor patient during his postoperative period while in the hospital, will follow hemoglobin to monitor for postoperative anemia. In the meantime patient is being administered analgesics for adequate pain control which he says is enough for the moment. We will continue to follow recommendations with the Ortho team. - Problems/Diagnosis (1) Displaced fracture of left femoral neck Problem: Acute (2) Balance problem Problem: Acute (3) Poor social situation Problem: Acute (4) Frail elderly Problem: Acute (5) Diabetes 1.5, managed as type 2 Problem: Acute (6) Status post hip hemiarthroplasty Problem: Acute
[2019-07-10] MEDS: FUROSEMIDE 20 MG TABLET PO SCH (09:45)
[2019-07-10] MEDS: LISINOPRIL 5 MG TABLET PO SCH (09:46)
[2019-07-10] MEDS: LEVOTHYROXINE SODIUM 50 MCG TABLET PO SCH (09:46)
[2019-07-10] MEDS: ONDANSETRON HCL/PF 2 MG/ML VIAL IV PRN (10:22)
[2019-07-10] MEDS: HYDROcodone/ACETAMINOPHEN 1 EACH TABLET PO PRN (11:12)
--- NOTE | 2019-07-10 12:48 | PN ---
Subjective - Date and Time Seen Date: 07/10/19 Time: 12:46 Subjective Narrative: Subjective: Reports mild pain. Was able to walk in the room with therapy. Voiding without any complications. Tolerating by mouth intake. Denies any nausea or vomiting. Denies calf pain. Slept well. Physical exam: Alert and oriented to person, place and time Right lower extremity: Palpable dorsalis pedis pulse. Sensation grossly intact to light touch. Dressings clean and dry. Able to flex and extend ankle and toes. No excessive drainage. Calf and thigh are soft and nontender. Assessment: Postop day 1 status post right hip sola-arthroplasty. Plan: Continue with physical and occupational therapy weightbearing as tolerated. Anterior hip precautions. Continue anticoagulation for 10 days with Lovenox followed by a daily aspirin 325 mg. 24 hours postoperative prophylactic antibiotics. Pain control with goal to rely on oral medications. Continue bowel regimen. Will need 6 weeks with walker or assitive device to protect joint while ambulating during the recovery process. Discharge planning. Okay to transfer to nursing facility if needed once medically stable. Keep wounds clean and dry. Cover with dry gauze and tape. Continue with JASWANT hose on surgical leg. Continue physical therapy. We will see him back in clinic in approximately 2 weeks. Objective - Vitals Vitals: Last Vital Signs Temp 36.8 C 07/10/19 10:46 Pulse 123 H 07/10/19 11:08 Resp 20 07/10/19 10:46 BP 135/70 07/10/19 10:46 Pulse Ox 91 L 07/10/19 10:46 - Abnormal Lab Findings Abnormal Lab Findings: Abnormal Lab Results 07/10/19 07/10/19 Range/Units 06:10 06:10 WBC 15.4 H D (4.0-10.5) K/mm3 RBC 4.58 L (4.7-6.0) M/mm3 Hct 40.4 L (42.0-52.0) % Potassium 4.8 H (3.4-4.6) mmol/L Random Glucose 183 H (70-110) mg/dL Cauti Physician Documentation - Urinary Catheter Management Silvestre Date of Removal: 07/10/19 Time of Removal: 06:20 Assessment/Plan - Problems/Diagnosis (1) Status post hip hemiarthroplasty Problem: Acute (2) Subcapital fracture of right hip Problem: Acute Qualifiers: Encounter type: subsequent encounter Fracture type: closed Fracture healing: with routine healing Qualified Code(s): S72.011D - Unspecified intracapsular fracture of right femur, subsequent encounter for closed fracture with routine healing
[2019-07-10] MEDS: guaiFENesin 100 MG/5 ML SYRUP PO PRN (12:55)
[2019-07-10] MEDS: ENOXAPARIN SODIUM 40 MG/0.4 ML SYRG SC SCH (16:16)
[2019-07-10] MEDS: RINGER'S SOLUTION,LACTATED 1,000 ML IV PRN (20:00)
[2019-07-10] MEDS: ACETAMINOPHEN 500 MG TABLET PO PRN (21:40)
[2019-07-10] MEDS: LISINOPRIL 10 MG TABLET PO SCH (21:41)
[2019-07-10] MEDS: SENNOSIDES/DOCUSATE SODIUM 1 TAB TABLET PO SCH (21:41)
[2019-07-10] MEDS: INSULIN GLARGINE,HUM.REC.ANLOG 100 UNITS/ML VIAL SC SCH (21:49)
[2019-07-11] MEDS: INSULIN LISPRO 100 UNITS/ML VIAL SC SCH ×3 (07:18→16:27)
[2019-07-11] MEDS: LEVOTHYROXINE SODIUM 50 MCG TABLET PO SCH (07:23)
--- NOTE | 2019-07-11 07:38 | PN ---
Subjective - Date and Time Seen Date: 07/11/19 Time: 07:37 Subjective Narrative: Subjective: Reports no concerns. Was able to walk to the bathroom with therapy. Slept well. Physical exam: Alert and oriented to person, place and time Right lower extremity: Palpable dorsalis pedis pulse. Sensation grossly intact to light touch. Dressings clean and dry. Able to flex and extend ankle and toes. No excessive drainage. Calf and thigh are soft and nontender. Assessment: Postop day 2 status post right hip sola-arthroplasty. Plan: Continue with physical and occupational therapy weightbearing as tolerated. Anterior hip precautions. Continue anticoagulation for 10 days with Lovenox followed by a daily aspirin 325 mg. Will need 6 weeks with walker or assitive device to protect joint while ambulating during the recovery process. Discharge planning. Okay to transfer to nursing facility if needed once medically stable. Keep wounds clean and dry. Cover with dry gauze and tape. Continue with JASWANT hose on surgical leg. Continue physical therapy. We will see him back in clinic in approximately 2 weeks. Objective - Vitals Vitals: Last Vital Signs Temp 36.5 C 07/11/19 06:33 Pulse 106 H 07/11/19 06:33 Resp 16 07/11/19 06:33 BP 132/61 07/11/19 06:33 Pulse Ox 93 07/11/19 06:33 Cauti Physician Documentation - Urinary Catheter Management Silvestre Date of Removal: 07/10/19 Time of Removal: 06:20 Assessment/Plan - Problems/Diagnosis (1) Status post hip hemiarthroplasty Problem: Acute (2) Subcapital fracture of right hip Problem: Acute Qualifiers: Encounter type: subsequent encounter Fracture type: closed Fracture healing: with routine healing Qualified Code(s): S72.011D - Unspecified intracapsular fracture of right femur, subsequent encounter for closed fracture with routine healing
--- NOTE | 2019-07-11 08:55 | PN ---
Subjective - Date and Time Seen Date: 07/11/19 Time: 08:49 Subjective Narrative: My pain is controlled, I am comfortable. My swallowing is better. Objective Objective Narrative: 89-year-old male status post right hemiarthroplasty of the femur to repair a right femoral neck fracture postoperative day #2, was evaluated at bedside and was found to be afebrile and in no acute distress. Patient was evaluated by the orthopedic surgeon who reports adequate postop progress and adequate tolerance of physical therapy and Occupational Therapy. The surgeon is okay with the patient being discharged to a care center where he will continue rehab with physical therapy and Occupational Therapy and made his recommendations for anticoagulation for 10 days. During my bedside evaluation patient I found him comfortably sitting in a armchair and completing his mechanical soft breakfast. He denies any further issues with swallowing and reports that his pain is adequately controlled. Patient was informed of the discharge plan and was told that he will be discharged to a care center to continue rehabbing he is in agreement with this. We are planning to discharge patient to a care center hopefully tomorrow when all arrangements are finalized. - Review of Systems Generalized/Overall Review: Reports: No Symptoms Reported EENTM: Reports: No Symptoms Reported Respiratory: Reports: No Symptoms Reported Cardiac: Reports: No Symptoms Reported Abdominal: Reports: No Symptoms Reported Genitourinary Symptoms: Reports: No Symptoms Reported Musculoskeletal Complaints: Reports: Joint Pain - Right hip pain Neurological: Reports: No Symptoms Reported Skin: Reports: No Symptoms Reported Endocrine: Reports: No Symptoms Reported - Vitals Vitals: Last Vital Signs Temp 36.5 C 07/11/19 06:33 Pulse 106 H 07/11/19 06:33 Resp 16 07/11/19 06:33 BP 132/61 07/11/19 06:33 Pulse Ox 93 07/11/19 06:33 - Exam Constitutional: Present: Alert, Oriented x3, Cooperative, Well developed, No distress, Elderly ENT Exam: Present: normal ENT inspection, hard of hearing Neck: Present: non-tender, full range of motion, supple, normal inspection, trachea midline Breasts: Present: Exam deferred Respiratory: Present: chest non-tender, lungs clear, normal breath sounds, no respiratory distress, no accessory muscle use, respiratory distress Cardiovascular/Chest: Present: normal peripheral pulses, regular rate, rhythm, no chest tenderness, no edema, no gallop, no JVD, no murmur, no rub Abdomen: Present: Normal bowel sounds, soft, nontender, nondistended, no rebound tenderness, no hepatospenomegaly, no masses /Rectal: Present: Exam deferred Extremity: Present: no pedal edema, no calf tenderness, normal capillary refill, other - Right hip covered by dry clean bandages, there is no sign of bleeding or infection. Skin Exam: Present: normal color, warm/dry, no cyanosis Lymphatic: Present: no adenopathy Neurologic: Present: no motor/sensory deficits, alert, normal mood/affect, oriented x 3 Appearance: Present: appropriate appearance, appropriate insight, neat Eye contact: Present: cooperative, good eye contact, other - Impaired speech due to lack of dentures Thoughts: Present: normal thought pattern, no apparent hallucination Cauti Physician Documentation - Urinary Catheter Management Silvestre Urethral Indwelling: No Date of Removal: 07/10/19 Time of Removal: 06:20 Assessment/Plan Plan Narrative: Authorization for the [facility] has been secured and discharge is scheduled for tomorrow where patient will continue PT and OT at the [facility]. Follow- up CBC to reevaluate postop hemoglobin was ordered for tomorrow morning. - Problems/Diagnosis (1) Displaced fracture of left femoral neck Problem: Acute (2) Balance problem Problem: Acute (3) Poor social situation Problem: Acute (4) Frail elderly Problem: Acute (5) Diabetes 1.5, managed as type 2 Problem: Acute (6) Status post hip hemiarthroplasty Problem: Acute
[2019-07-11] MEDS: FUROSEMIDE 20 MG TABLET PO SCH (11:19)
[2019-07-11] MEDS: LISINOPRIL 5 MG TABLET PO SCH (11:19)
[2019-07-11] MEDS: ACETAMINOPHEN 500 MG TABLET PO PRN (11:20)
[2019-07-11] MEDS: ENOXAPARIN SODIUM 40 MG/0.4 ML SYRG SC SCH (16:27)
[2019-07-11] MEDS: INSULIN GLARGINE,HUM.REC.ANLOG 100 UNITS/ML VIAL SC SCH (20:45)
[2019-07-11] MEDS: SENNOSIDES/DOCUSATE SODIUM 1 TAB TABLET PO SCH (20:48)
[2019-07-11] MEDS: LISINOPRIL 10 MG TABLET PO SCH (20:48)
[2019-07-12] MEDS: ACETAMINOPHEN 500 MG TABLET PO PRN (03:21)
[2019-07-12] MEDS: guaiFENesin 100 MG/5 ML SYRUP PO PRN (03:21)
[2019-07-12] MEDS: INSULIN LISPRO 100 UNITS/ML VIAL SC SCH (06:50)
[2019-07-12 07:09] LABS: Hematocrit 33.5 % (42.0-52.0); Hemoglobin 11.4 gm/dL (13.5-18.0); Mean Cell Volume 88.2 fl (78-100); Mean Platelet Volume 9.7 fl (8-11.3); Neutrophil % 76.3 % (42-75.0); Platelet Count 385 K/mm3 (150-450); Red Cell Distribution Width 12.4 % (11.5-14.0); White Blood Count 13.1 K/mm3 (4.0-10.5)
[2019-07-12] MEDS: LEVOTHYROXINE SODIUM 50 MCG TABLET PO SCH (07:59)
--- NOTE | 2019-07-12 09:23 | DS ---
(1) Displaced fracture of left femoral neck Problem: Acute (2) Balance problem Problem: Acute (3) Poor social situation Problem: Acute (4) Frail elderly Problem: Acute (5) Diabetes 1.5, managed as type 2 Problem: Acute (6) Status post hip hemiarthroplasty Problem: Acute (7) Dysphagia Problem: Acute Date of Discharge:: 07/12/19 Description of Stay: 89-year-old male admitted for a right femoral neck fracture secondary to fall that occurred in his home was evaluated at bedside and was found to be afebrile and in no acute distress. Patient underwent a right hemiarthroplasty of the hip to repair the fracture, there were no adverse events reported during the procedure and during the postop period. Patient was evaluated by Ortho who cleared him for discharge to a nursing facility where he will undergo rehab with physical therapy occupational therapy and speech therapy. Postop hemoglobin has remained stable and patient did not require any transfusions. At the moment he reports adequate control of his pain and his surgical wound is clean and covered by clean dry bandage, there are no signs of infection or active bleeding. Patient will be sent with orders to do outpatient CBC to reevaluate hemoglobin in a couple of days, will follow up with the results. Procedures Performed: see notes below List Procedures: Right sola-arthroplasty to repair right femoral neck fracture. Results and Findings: Lab Pending Results 07/08/19 16:05: WBC 12.5 H, RBC 4.41 L, Hgb 13.2 L, Hct 39.3 L, MCV 89.1, MCH 29.9, MCHC 33.6, RDW 12.3, Plt Count 396, MPV 8.9, Immature Gran % (Auto) 0.60 H, Immature Gran # (Auto) 0.08 H, Neutrophils % 69.6, Lymphocytes % 17.2 L, Monocytes % 8.2, Eosinophils % 3.4 H, Basophils % 1.0, Nucleated RBC % 0.0, Neutrophils # 8.7 H, Lymphocytes # 2.15, Monocytes # 1.0, Eosinophils # 0.4, Absolute Basophils 0.1 07/08/19 16:05: Sodium 135, Plasma Sodium 136, Potassium 4.3, Chloride 103, Carbon Dioxide 26.2, Anion Gap 10.1, BUN 12 D, Creatinine 1.14, Est GFR (Non-Af Amer) 64 D, BUN/Creatinine Ratio 10.5, Random Glucose 143 H, Calcium 8.8, Calcium Adj for Albumin 9.0, Total Bilirubin 0.5, AST 31, ALT 24, Alkaline Phosphatase 139, Total Protein 7.0, Albumin 3.3 L 07/10/19 06:10: WBC 15.4 H D, RBC 4.58 L, Hgb 13.7, Hct 40.4 L, MCV 88.2, MCH 29.9, MCHC 33.9, RDW 12.1, Plt Count 391, MPV 9.0 07/10/19 06:10: Sodium 132, Plasma Sodium 133, Potassium 4.8 H, Chloride 99, Carbon Dioxide 26.7, Anion Gap 11.1, BUN 14, Creatinine 1.08, Est GFR (Non-Af Amer) 68, BUN/Creatinine Ratio 13.0, Random Glucose 183 H, Calcium 8.4 07/12/19 06:42: WBC 13.1 H, RBC 3.80 L, Hgb 11.4 L, Hct 33.5 L, MCV 88.2, MCH 30.0, MCHC 34.0, RDW 12.4, Plt Count 385, MPV 9.7, Immature Gran % (Auto) 0.80 H, Immature Gran # (Auto) 0.11 H, Neutrophils % 76.3 H, Lymphocytes % 12.3 L, Monocytes % 9.7 H, Eosinophils % 0.7, Basophils % 0.2, Nucleated RBC % 0.0, Neutrophils # 10.0 H, Lymphocytes # 1.60, Monocytes # 1.3 H, Eosinophils # 0.1, Absolute Basophils 0.0 Discharge Location: [facility] Disposition: SNF Condition: Stable Face to Face Encounter completed per [facility] Guidelines: No Level of Care: SNF Discharge Activity: Activity as tolerated Discharge Diet: [facility] soft Care Home Therapy: Physical Therapy, Occupation Therapy, Speech Therapy Referrals: Ekaterina Alberts MD [Primary Care Provider] - Prescriptions (Any new or edited meds): Enoxaparin Sodium [Lovenox] 40 mg SC Q24H 8 Days #8 disp.syrin Transmission Status: Pending to [place], [place] traMADol HCL [Tramadol HCl] 50 mg PO Q6H PRN 5 Days #30 tab PRN Reason: Pain Transmission Status: Sent to [place], [place] Complete Home Medications List: Complete Home Medication List: levothyroxine 50 mcg tablet 50 mcg PO DAILY #90 tab 01/08/19 blood sugar diagnostic See Dose Instructions .ROUTE .MEDSUPPLY #100 ea 01/15/19 insulin detemir U-100 100 unit/mL subcutaneous solution 17 unit SUBCUT DAILY ml 05/10/19 furosemide 20 mg tablet 20 mg PO DAILY 05/31/19 Lisinopril [Zestril] 5 mg PO QAM 07/08/19 Enoxaparin Sodium [Lovenox] 40 mg SC Q24H 8 Days #8 disp.syrin 07/12/19 traMADol HCL [Tramadol HCl] 50 mg PO Q6H PRN 5 Days #30 tab 07/12/19
[2019-07-12] MEDS: FUROSEMIDE 20 MG TABLET PO SCH (09:38)
[2019-07-12] MEDS: LISINOPRIL 5 MG TABLET PO SCH (09:38)
[2019-07-12 10:25] VITALS: BP 147/70
== END 2019-07-12 10:45 | DRG 470 ==
LOC: ER 15:40 → MS 17:27
PROVIDERS: ADMIT Family Medicine; ATTEND Family Medicine
DX: I10 Essential (primary) hypertension; R13.10 Dysphagia, unspecified; S72.001A Fracture of unspecified part of neck of right femur, initial encounter for closed fracture; E03.9 Hypothyroidism, unspecified; W01.0XXA Fall on same level from slipping, tripping and stumbling without subsequent striking against object, initial encounter; Y92.017 Garden or yard in single-family (private) house as the place of occurrence of the external cause; Z79.4 Long term (current) use of insulin; E13.9 Other specified diabetes mellitus without complications; E78.5 Hyperlipidemia, unspecified; K27.7 Chronic peptic ulcer, site unspecified, without hemorrhage or perforation; N40.0 Benign prostatic hyperplasia without lower urinary tract symptoms; R54 Age-related physical debility; Z91.81 History of falling; J44.9 Chronic obstructive pulmonary disease, unspecified; Z86.718 Personal history of other venous thrombosis and embolism; Z60.2 Problems related to living alone
CPT/HCPCS: 36415; 71010; 71045; 73502; 80048; 80053; 85025; 85027; 92526; 92610; 93005; 96365; 97110; 97116; 97162; 97165; 97530; 99285; J0131; J2405